=== PATIENT | male | born 1945 | race Hispanic/Latino ===

== ENCOUNTER 2018-06-14 20:04 | Inpatient (IN) | payer OTHER ==
[2018-06-14] MEDS ORDERED: ALBUTEROL 2.5 MG/3 ML NEB SOL ONE (21:20)
[2018-06-14 21:29] LABS: Absolute Lymphocytes (CBC) 1.8 K/uL (0.7-4.9); Absolute Monocytes 0.7 K/uL (0.1-1.3); Absolute Neutrophil 5.3 K/uL (1.8-8.0); Basophils % 0.9 % (0-1.3); Hematocrit 37.7 % (39.6-49.0); Lymphocytes % 21.7 % (15.3-44.8); MPV 11.3 fL (7.6-11.3); Monocytes % 8.8 % (3.3-12.3); RBC Red Blood Cell Count 3.96 M/uL (4.33-5.43)
--- NOTE | 2018-06-14 21:46 | RAD REPORT ---
EXAM DESCRIPTION: Jacinda Single View06/14/2018 9:10 pm CLINICAL HISTORY: Shortness of breath COMPARISON: January 2018 FINDINGS: Left base is mildly hazy. Right lung appears clear of acute infiltrate. The heart is norm al size IMPRESSION: Left base is mildly hazy suspicious for a mild pneumonia
[2018-06-14 21:51] LABS: ALT/SGPT 29 U/L (12-78); AST/SGOT 29 U/L (15-37); Albumin 3.5 g/dL (3.4-5.0); Alkaline Phosphatase 137 U/L (45-117); BUN Blood Urea Nitrogen 25 mg/dL (7-18); Bicarbonate 28 mmol/L (21-32); Bilirubin Direct 0.1 mg/dL (0-0.2); Bilirubin Total 0.5 mg/dL (0.2-1.0); Glucose Level 144 mg/dL (74-106); Magnesium 1.9 mg/dL (1.8-2.4); NT PRO-BNP 549 pg/mL (<125); Potassium 3.5 mmol/L (3.5-5.1); Protein, Total 7.6 g/dL (6.4-8.2); Sodium Level 145 mmol/L (136-145); Troponin (Emerg Dept Use Only) < 0.02 ng/mL (0.0-0.045)
[2018-06-14 22:00] LABS: Protime INR 1.03
[2018-06-14] MEDS ORDERED: CEFTRIAXONE/SWI 1gm 1 GM/10 ML SYR ONE (22:13)
--- NOTE | 2018-06-14 22:27 | EDPHYS ---
Physician Documentation [facility] Name: Link Granados Age: 73 yrs Sex: Male : 1945 Arrival Date: 06/14/2018 Time: 20:05 Bed 20 Private MD: ED Physician Jordan Murrell HPI: 06/14 21:00 This 73 yrs old Male presents to ER via Wheelchair with complaints of snw Shortness Of Breath. 21:00 The patient has shortness of breath at rest. Onset: The symptoms/episode began/occurred snw suddenly. Duration: The symptoms are continuous. The patient's shortness of breath is aggravated by exertion, light activity, supine position. Associated signs and symptoms: Pertinent positives: This patient does not have any pertinent positive signs or symptoms associated with shortness of breath. Pertinent negatives: chest pain. Severity of symptoms: At their worst the symptoms were moderate severe. The patient has experienced a previous episode. pt had stent placement at [facility] 05/22/18. Historical: - Allergies: 20:06 NKDA; la1 - PMHx: 20:06 Gout; High Cholesterol; Hypertension; la1 - Immunization history:: Adult Immunizations up to date. - Social history:: Smoking status: Patient/guardian denies using tobacco. - Ebola Screening: : No symptoms or risks identified at this time. ROS: 21:00 Constitutional: Negative for fever, chills, and weight loss, Eyes: Negative for injury, snw pain, redness, and discharge, ENT: Negative for injury, pain, and discharge, Neck: Negative for injury, pain, and swelling, Cardiovascular: Negative for chest pain, palpitations, and edema, Abdomen/GI: Negative for abdominal pain, nausea, vomiting, diarrhea, and constipation, Back: Negative for injury and pain, : Negative for injury, bleeding, discharge, and swelling, MS/Extremity: Negative for injury and deformity, Skin: Negative for injury, rash, and discoloration, Neuro: Negative for headache, weakness, numbness, tingling, and seizure. 21:00 Respiratory: Positive for shortness of breath, at rest. Exam: 20:58 Constitutional: This is a well developed, well nourished patient who is awake, alert, snw and in no acute distress. Head/Face: Normocephalic, atraumatic. Eyes: Pupils equal round and reactive to light, extra-ocular motions intact. Lids and lashes normal. Conjunctiva and sclera are non-icteric and not injected. Cornea within normal limits. Periorbital areas with no swelling, redness, or edema. ENT: Nares patent. No nasal discharge, no septal abnormalities noted. Tympanic membranes are normal and external auditory canals are clear. Oropharynx with no redness, swelling, or masses, exudates, or evidence of obstruction, uvula midline. Mucous membranes moist. Neck: Trachea midline, no thyromegaly or masses palpated, and no cervical lymphadenopathy. Supple, full range of motion without nuchal rigidity, or vertebral point tenderness. No Meningismus. Chest/axilla: Normal chest wall appearance and motion. Nontender with no deformity. No lesions are appreciated. Cardiovascular: Regular rate and rhythm with a normal S1 and S2. No gallops, murmurs, or rubs. Normal PMI, no JVD. No pulse deficits. 20:58 Abdomen/GI: Soft, non-tender, with normal bowel sounds. No distension or tympany. No guarding or rebound. No evidence of tenderness throughout. Back: No spinal tenderness. No costovertebral tenderness. Full range of motion. 20:58 Neuro: Awake and alert, GCS 15, oriented to person, place, time, and situation. Cranial nerves II-XII grossly intact. Motor strength 5/5 in all extremities. Sensory grossly intact. Cerebellar exam normal. Normal gait. Psych: Awake, alert, with orientation to person, place and time. Behavior, mood, and affect are within normal limits. 20:58 Respiratory: the patient does not display signs of respiratory distress, Respirations: shallow respirations, tachypnea, Breath sounds: decreased breath sounds, that are moderate, that are severe, are located in both bases, wheezing: expiratory 20:58 Skin: Appearance: normal except for affected area, lower extremities with significant edema, some discoloration. Pt with orthopnea. Vital Signs: 20:06 BP 185 / 71; Pulse 90; Resp 22; Temp 98.6; Pulse Ox 88% on R/A; Weight 92.99 kg; Height la1 5 ft. 2 in. (157.48 cm); 20:30 BP 138 / 51; Pulse 81; Resp 22; Pulse Ox 99% on 2 lpm NC; rr5 21:00 BP 121 / 49; Pulse 71; Resp 23; Pulse Ox 99% on 2 lpm NC; rr5 21:30 BP 111 / 41; Pulse 74; Resp 20; Pulse Ox 98% on 2 lpm NC; rr5 22:00 BP 132 / 65; Pulse 63; Resp 20; Pulse Ox 99% on 2 lpm NC; rr5 22:30 BP 142 / 56; Pulse 72; Resp 20; Pulse Ox 99% on 2 lpm NC; rr5 06/15 00:00 BP 144 / 55; Pulse 60; Resp 19; Pulse Ox 99% on 2 lpm NC; rr5 01:00 BP 126 / 55; Pulse 60; Resp 17; Pulse Ox 99% on 2 lpm NC; rr5 01:53 BP 131 / 57; Pulse 59; Resp 16; Pulse Ox 99% on 2 lpm NC; rr5 02:27 BP 117 / 64; Pulse 60; Resp 17; Temp 98.1; Pulse Ox 99% on 2 lpm NC; rr5 06/14 20:06 Body Mass Index 37.49 (92.99 kg, 157.48 cm) la1 MDM: 06/14 20:57 Patient medically screened. snw 22:21 Data reviewed: vital signs, nurses notes. Data interpreted: Pulse oximetry: on room air snw is 87 %. Interpretation: hypoxia. Plan: will initiate a nebulizer treatment. Counseling: I had a detailed discussion with the patient and/or guardian regarding: the historical points, exam findings, and any diagnostic results supporting the discharge/admit diagnosis, the presence of at least one elevated blood pressure reading (>120/80) during this emergency department visit, lab results, radiology results, the need for further work-up and treatment in the hospital. Physician consultation: Lawrence Rebolledo MD was called at 22:23, was contacted at 22:23, regarding admission, to the telemetry unit. Dr. Bland, would like consultation with Dr. Dr. Bland. 06/14 20:24 Order name: Urine Dipstick--Ancillary (enter results); Complete Time: 23:01 ar5 06/14 20:46 Order name: Basic Metabolic Panel; Complete Time: 21:53 snw 06/14 20:46 Order name: CBC with Diff; Complete Time: 21:44 snw 06/14 20:46 Order name: LFT's; Complete Time: 21:53 w 06/14 20:46 Order name: Magnesium; Complete Time: 21:53 w 06/14 20:46 Order name: NT PRO-BNP; Complete Time: 21:53 w 06/14 20:46 Order name: PT-INR; Complete Time: 22:07 w 06/14 20:46 Order name: Troponin (emerg Dept Use Only); Complete Time: 21:53 w 06/14 20:46 Order name: XRAY Chest (1 view); Complete Time: 21:48 06/14 20:46 Order name: EKG; Complete Time: 20:47 w 06/14 20:46 Order name: Cardiac monitoring; Complete Time: 20:59 06/14 20:46 Order name: EKG - Nurse/Tech; Complete Time: 20:58 06/14 20:46 Order name: IV Saline Lock; Complete Time: 21:06 w 06/14 20:46 Order name: Labs collected and sent; Complete Time: 21:06 06/14 20:46 Order name: O2 Per Protocol; Complete Time: 21:06 06/14 20:46 Order name: O2 Sat Monitoring; Complete Time: 21:06 snw Administered Medications: 21:15 Drug: Albuterol 2.5 mg Route: Inhalation; rr5 06/15 00:01 Follow up: Response: No adverse reaction; Marked relief of symptoms rr5 06/14 22:00 Drug: Rocephin 1 grams Route: IV; Rate: calculated rate; Site: right forearm; rr5 06/15 00:01 Follow up: Response: No adverse reaction; IV Status: Completed infusion rr5 Disposition: 07:03 Co-signature as Attending Physician, Jordan Murrell MD I agree with the assessment and vito plan of care. Disposition: 06/14/18 22:25 Hospitalization ordered by Lawrence Rebolledo for Observation. Preliminary diagnosis are Asthma, Pneumonia, unspecified organism, Edema, not elsewhere classified. - Bed requested for Telemetry/MedSurg (observation). - Status is Observation. rr5 - Condition is Stable. - Problem is an acute exacerbation. - Symptoms have worsened. UTI on Admission? No Signatures: Dispatcher [employer] EDMS Hal, CINTIA Chase RN, Corey, MD MD cha Therrien, Shelly, PROFESSOR OF RADIOLOGY-C PROFESSOR OF RADIOLOGY-Csnw Nicola Berrios RN RN la1 Kendrick Bridges RN RN rr5 Corrections: (The following items were deleted from the chart) :06/14 22:25 Hospitalization Ordered by Lawrence Rebolledo MD for Observation. Preliminary kl diagnosis is Asthma; Pneumonia, unspecified organism; Edema, not elsewhere classified. Bed requested for Telemetry/MedSurg (observation). Status is Observation. Condition is Stable. Problem is an acute exacerbation. Symptoms have worsened. UTI on Admission? No. snw 06/15 03:02 01:06/14/2018 22:25 Hospitalization Ordered by Lawrence Rebolledo MD for Observation. rr5 Preliminary diagnosis is Asthma; Pneumonia, unspecified organism; Edema, not elsewhere classified. Bed requested for Telemetry/MedSurg (observation). Status is Observation. Condition is Stable. Problem is an acute exacerbation. Symptoms have worsened. UTI on Admission? No. kl
--- NOTE | 2018-06-14 22:27 | ER ---
Nurse's Notes [facility] Name: Link Granados Age: 73 yrs Sex: Male : 1945 Arrival Date: 06/14/2018 Time: 20:05 Bed 20 Private MD: Diagnosis: Asthma;Pneumonia, unspecified organism;Edema, not elsewhere classified Presentation: 06/14 20:05 Presenting complaint: Patient states: I started to get suddenly SOB on my way home an I la1 had some stents placed earlier this month. Transition of care: patient was not received from another setting of care. Onset of symptoms was June 14, 2018. Risk Assessment: Do you want to hurt yourself or someone else? Patient reports no desire to harm self or others. Initial Sepsis Screen: Does the patient meet any 2 criteria? No. Patient's initial sepsis screen is negative. Does the patient have a suspected source of infection? No. Patient's initial sepsis screen is negative. Care prior to arrival: None. 20:05 Method Of Arrival: Wheelchair la1 20:05 Acuity: JOHAN 2 la1 Triage Assessment: 20:10 Respiratory: Onset: The symptoms/episode began/occurred suddenly, the patient has rr5 moderate shortness of breath. 20:10 General: Appears uncomfortable, Behavior is calm, cooperative, appropriate for age. rr5 Historical: - Allergies: 20:06 NKDA; la1 - PMHx: 20:06 Gout; High Cholesterol; Hypertension; la1 - Immunization history:: Adult Immunizations up to date. - Social history:: Smoking status: Patient/guardian denies using tobacco. - Ebola Screening: : No symptoms or risks identified at this time. Screenin:10 Abuse screen: Denies threats or abuse. Denies injuries from another. Nutritional rr5 screening: No deficits noted. Tuberculosis screening: No symptoms or risk factors identified. Fall Risk IV access (20 points). Gait- Normal/Bed Rest/Wheelchair (0 pts) Total Adamson Fall Scale indicates No Risk (0-24 pts). Assessment: 20:05 General: Appears in no apparent distress. uncomfortable, Behavior is calm, cooperative, rr5 appropriate for age. Pain: Denies pain. Neuro: Level of Consciousness is awake, alert, obeys commands, Oriented to person, place, time, situation, Appropriate for age. Cardiovascular: Capillary refill < 3 seconds Patient's skin is warm and dry. Rhythm is regular. Respiratory: Reports shortness of breath at rest on exertion since sudden Airway is patent Respiratory effort is even, with nasal flaring, pursed lip, Respiratory pattern is regular. 20:05 GI: No signs and/or symptoms were reported involving the gastrointestinal system. : rr5 No signs and/or symptoms were reported regarding the genitourinary system. EENT: No signs and/or symptoms were reported regarding the EENT system. Derm: Skin is intact, Skin temperature is warm. Musculoskeletal: Capillary refill < 3 seconds, Range of motion: intact in all extremities, bipedal edema noted. 20:05 Respiratory: Breath sounds are diminished Breath sounds with wheezes. rr5 20:15 Reassessment: Patient appears in no apparent distress at this time. No changes from rr5 previously documented assessment. having SOB, having hard time to breath. 21:15 Reassessment: Patient appears in no apparent distress at this time. awaiting for rr5 laboratory reports Patient states feeling better. Patient states symptoms have improved. 22:30 Reassessment: Patient appears in no apparent distress at this time. Patient is alert, rr5 oriented x 3, equal unlabored respirations, skin warm/dry/pink. reassessment done by ED provider, explained to patient he is for admission. Patient states feeling better. Patient states symptoms have improved. 23:59 Reassessment: Patient appears in no apparent distress at this time. Patient is alert, rr5 oriented x 3, equal unlabored respirations, skin warm/dry/pink. no complaints made awaiting for admitting orders. Patient states feeling better. Patient states symptoms have improved. 06/15 01:00 Reassessment: Patient appears in no apparent distress at this time. Patient is alert, rr5 oriented x 3, equal unlabored respirations, skin warm/dry/pink. patient prefers to be on sitting position. without complaints made. 01:50 Reassessment: Patient appears in no apparent distress at this time. Patient is alert, rr5 oriented x 3, equal unlabored respirations, skin warm/dry/pink. no complaints made. vitally stable. Patient states feeling better. Patient states symptoms have improved. Vital Signs: 06/14 20:06 BP 185 / 71; Pulse 90; Resp 22; Temp 98.6; Pulse Ox 88% on R/A; Weight 92.99 kg; Height la1 5 ft. 2 in. (157.48 cm); 20:30 BP 138 / 51; Pulse 81; Resp 22; Pulse Ox 99% on 2 lpm NC; rr5 21:00 BP 121 / 49; Pulse 71; Resp 23; Pulse Ox 99% on 2 lpm NC; rr5 21:30 BP 111 / 41; Pulse 74; Resp 20; Pulse Ox 98% on 2 lpm NC; rr5 22:00 BP 132 / 65; Pulse 63; Resp 20; Pulse Ox 99% on 2 lpm NC; rr5 22:30 BP 142 / 56; Pulse 72; Resp 20; Pulse Ox 99% on 2 lpm NC; rr5 06/15 00:00 BP 144 / 55; Pulse 60; Resp 19; Pulse Ox 99% on 2 lpm NC; rr5 01:00 BP 126 / 55; Pulse 60; Resp 17; Pulse Ox 99% on 2 lpm NC; rr5 01:53 BP 131 / 57; Pulse 59; Resp 16; Pulse Ox 99% on 2 lpm NC; rr5 02:27 BP 117 / 64; Pulse 60; Resp 17; Temp 98.1; Pulse Ox 99% on 2 lpm NC; rr5 06/14 20:06 Body Mass Index 37.49 (92.99 kg, 157.48 cm) la1 ED Course: 06/14 20:05 Patient arrived in ED. la1 20:06 Triage completed. la1 20:06 Arm band placed on right wrist. la1 20:10 Patient has correct armband on for positive identification. Placed in gown. Call light rr5 in reach. 20:10 equipment monitor phototypesetting on. Pulse ox on. NIBP on. rr5 20:44 Kendrick Bridges RN is Primary Nurse. rr5 20:45 Marbella Madsen FNP-C is PHCP. snw 20:45 Jordan Murrell MD is Attending Physician. snw 21:00 Inserted saline lock: 20 gauge in right forearm, using aseptic technique. Blood rr5 collected. 21:11 XRAY Chest (1 view) In Process Unspecified. EDMS 22:24 Lawrence Rebolledo MD is Hospitalizing Provider. snw 06/15 02:04 No provider procedures requiring assistance completed. Patient admitted, IV remains in rr5 place. intact, No redness/swelling at site. Administered Medications: 06/14 21:15 Drug: Albuterol 2.5 mg Route: Inhalation; rr5 06/15 00:01 Follow up: Response: No adverse reaction; Marked relief of symptoms rr5 06/14 22:00 Drug: Rocephin 1 grams Route: IV; Rate: calculated rate; Site: right forearm; rr5 06/15 00:01 Follow up: Response: No adverse reaction; IV Status: Completed infusion rr5 Outcome: 06/14 22:25 Decision to Hospitalize by Provider. snw 06/15 02:20 Admitted to Med/surg accompanied by nurse, via wheelchair, with oxygen, with chart, rr5 Report called to deb Condition: stable Instructed on the need for admit. 03:02 Patient left the ED. rr5 Signatures: Dispatcher [employer] EDMS Marbella Madsen, [facility] PUBLIC HEALTH SANITARIAN-CsnNicola Mike RN RN la1 Kendrick Bridges RN RN rr5 Corrections: (The following items were deleted from the chart) 02:32 06/14 20:05 Musculoskeletal: Capillary refill < 3 seconds, Range of motion: intact in rr5 all extremities, rr5
[2018-06-14 22:56] LABS: Urine Blood TRACE (NEG); Urine Glucose NEGATIVE (NEG); Urine Protein TRACE (NEG)
[2018-06-15] MEDS ORDERED: FUROSEMIDE 20 MG TABLET PO ONE (03:03)
[2018-06-15] MEDS ORDERED: CARVEDILOL 25 MG TAB PO ONE (03:11)
[2018-06-15] MEDS: ALBUTEROL 2.5 MG/3 ML NEB SOL NEB SCH ×3 (03:45→11:36)
[2018-06-15 04:23] VITALS: BMI 37.5
[2018-06-15] MEDS: IPRATROPIUM BROM 0.5MG/2.5ML NEB PRN (05:31)
[2018-06-15 06:51] LABS: Absolute Lymphocytes (CBC) 1.9 K/uL (0.7-4.9); Absolute Monocytes 0.8 K/uL (0.1-1.3); Basophils % 0.8 % (0-1.3); Eosinophils % 2.2 % (0-4.4); Lymphocytes % 24.1 % (15.3-44.8); MPV 11.3 fL (7.6-11.3); RBC Red Blood Cell Count 3.69 M/uL (4.33-5.43)
[2018-06-15 07:19] LABS: BUN Blood Urea Nitrogen 24 mg/dL (7-18); Bicarbonate 28 mmol/L (21-32); Glucose Level 113 mg/dL (74-106); NT PRO-BNP 867 pg/mL (<125); Potassium 3.4 mmol/L (3.5-5.1); Sodium Level 145 mmol/L (136-145); Troponin I 0.03 ng/mL (0.0-0.045)
--- NOTE | 2018-06-15 07:58 | EKG ---
Test Date: 2018-06-14 Test Time: 20:19:50 Boring Machine Set Up Operator: АНДРЕЙ MEASUREMENT RESULTS: Intervals: Rate: 84 ND: 246 QRSD: 98 QT: 350 QTc: 413 [place]: P: 89 ND: 246 QRS: 11 T: 150 INTERPRETIVE STATEMENTS: Sinus rhythm with 1st degree AV block ST & T wave abnormality, consider inferolateral ischemia Abnormal ECG Compared to ECG 04/14/2013 19:01:27 First degree AV block now present ST (T wave) deviation now present Possible ischemia now present Electronically Signed On 06-15-18 07:53:12 ASSOCIATE ACCOUNTANT by Pablo Duncan
[2018-06-15] MEDS: ASPIRIN EC 81 MG TAB PO SCH (08:12)
[2018-06-15] MEDS: ACETAMINOPHEN 500 MG TAB PO PRN (08:12)
[2018-06-15] MEDS: SPIRONOLACTONE 25 MG TABLET PO SCH ×2 (09:00→12:38)
[2018-06-15] MEDS: TICAGRELOR 90 MG TABLET PO SCH ×3 (09:00→21:18)
[2018-06-15] MEDS ORDERED: CEFTRIAXONE/SWI 1gm 1 GM/10 ML SYR IV SCH (09:00)
[2018-06-15] MEDS ORDERED: CEFTRIAXONE 1 GM/NS 50 ML 1 GM/50 ML BAG IV SCH (09:00)
--- NOTE | 2018-06-15 11:54 | P.CNS ---
Date of Consult: 06/15/18 Chief Complaint: Shortness of breath History of Present Illness: Patient is 73 years of age with a recent history of CT coronary artery disease stent placement developed acute onset of shortness of breath he has been having progressive lower extremity edema prior lung function tests have shown restrictive disease he also has symptoms of sleep apnea which includes excessive daytime somnolence loud snoring this was noticed by physicians when they were trying to place a stent and he would quit breathing apparently according to his son he had to be intubated to place stents no prior history of obstructive airways disease Allergies No Known Drug Allergies Allergy (Verified 06/15/18 04:03) Unknown - Past Medical/Surgical History Diabetic: No -: dyslipidemia -: hypovolemia -: chronic bronchitis -: dyspnea -: gout -: hypertensive d/o -: metabolic syndrome x -: CT -: sleep apnea -: left knee sx- tkr -: heart stent - Social History Smoking Status: Current every day smoker Alcohol use: No CD- Drugs: No Caffeine use: No Place of Residence: Home Review of Systems General: Weakness Respiratory: Shortness of Breath Cardiovascular: Edema Physical Examination Temp Pulse Resp BP Pulse Ox 97.6 F 64 20 192/79 H 98 06/15/18 08:00 06/15/18 08:00 06/15/18 08:00 06/15/18 08:00 06/15/18 08:00 General: Alert, In no apparent distress, Oriented x3 HEENT: Atraumatic Neck: Supple Respiratory: Clear to auscultation bilaterally, Diminished Cardiovascular: Normal S1 S2, Edema (Significant 3+ lower extremity edema) Laboratory Data (last 24 hrs) 06/14/18 21:00: PT 12.1, INR 1.03 06/14/18 21:00: WBC 8.1, Hgb 12.4 L, Hct 37.7 L, Plt Count 135 L 06/14/18 21:00: Sodium 145, Potassium 3.5, BUN 25 H, Creatinine 0.77, Glucose 144 H, Magnesium 1.9, Total Bilirubin 0.5, AST 29, ALT 29, Alkaline Phosphatase 137 H - Problems (1) Shortness of breath Current Visit: Yes Status: Acute Plan: Patient is 73 years of age admitted with acute onset of shortness of breath history of significant coronary artery disease recent stent placement lower extremity edema of order an echocardiogram with Doppler aggressive diuresis CT pulmonary angiogram chest x-ray shows diminished lung volumes (2) Sleep apnea Current Visit: Yes Status: Acute Plan: Patient high risk for sleep apnea he an outpatient sleep study Qualifiers: Sleep apnea type: unspecified type Qualified Code(s): G47.30 - Sleep apnea , unspecified
[2018-06-15] MEDS ORDERED: ALBUTEROL 2.5 MG/3 ML NEB SOL NEB SCH (12:00)
[2018-06-15] MEDS: FUROSEMIDE 40 MG/4 ML VIAL IV SCH (12:30)
--- NOTE | 2018-06-15 14:18 | RAD REPORT ---
EXAM DESCRIPTION: CT - Chest For Pe Angio - 06/15/2018 2:05 pm CLINICAL HISTORY: Chest pain, shortness of breath COMPARISON: Chest film June 14, CT chest July 2015 TECHNIQUE: Dynamically enhanced 3 mm thick images of the chest were obtained during administration o f approximately 150mL Isovue 370 IV contrast. Coronal and oblique MIP reconstruction images were gene rated and reviewed. Exam utilizes a protocol to evaluate the pulmonary arterial tree. All CT scans are performed using dose optimization technique as appropriate and may include automated exposure control or mA/KV adjustment according to patient size. FINDINGS: No pulmonary emboli are identified. The aorta as imaged shows no acute or suspicious finding. No pericardial thickening or effusion. No mass or consolidation. Right hemidiaphragm elevation noted. Interstitial markings overall are prom inent, accentuated by respiratory motion degradation. Patient does have slight increase in interstiti al opacification in the posterior left base with rare airspace opacification present. Minimal medial right base opacification present as well. No pleural effusion or pleural thickening. No mediastinal or hilar suspicious masses. No chest wall masses or abnormal axillary lymphadenopathy. IMPRESSION: No pulmonary emboli identified. Minimal bilateral lung base opacification from a minimal infiltrate or atelectasis.
--- NOTE | 2018-06-15 15:29 | RAD REPORT ---
EXAM DESCRIPTION: US - Extrem Venous W Compress Darrian - 06/15/2018 2:59 pm CLINICAL HISTORY: Bilateral leg pain and swelling COMPARISON: None. TECHNIQUE: Real-time sonographic evaluation of the bilateral lower extremity common femoral, superfi cial femoral, popliteal and posterior tibial veins was performed. FINDINGS: Normal compressibility, flow augmentation, phasic flow and spontaneous flow are identified in the left and right lower extremity common femoral, superficial femoral, popliteal and posterior t ibial veins. No intraluminal filling defects seen. IMPRESSION: No DVT in either lower extremity.
[2018-06-15] MEDS ORDERED: POTASSIUM CL SA 10 MEQ TAB PO SCH (21:00)
[2018-06-15] MEDS: ATORVASTATIN 40 MG TAB PO SCH (21:19)
--- NOTE | 2018-06-16 04:25 | HP ---
Date of Admission: 06/14/2018 Chief Complaint: Left-sided pneumonia. History Of Present Illness: A 73-year-old male who was brought to the emergency room because of shor tness of breath and cough. The patient had evaluation done. He was found to have opacification of t he left base, which was interpreted as pneumonia. The patient is admitted. The patient also was fou nd to have evidence of bilateral swelling. Past Medical History: The patient recently underwent coronary angiography and angioplasty. The estella ent has other medical problems that include hypertension, asthma, hyperlipidemia, and gout. Family History: Positive for gout, hypertension, and hyperlipidemia. Personal History: Nonsmoker. Allergies: NONE. Review of Systems: No history of fever, chills, or rigors. Physical Examination: General: Revealed a 73-year-old male, obese, fully alert and oriented. HEENT: Negative. Neck: Supple. JVD negative. Chest: Bilateral scattered wheezes. Heart: Regular. Abdomen: Pendulous, nontender. Extremities: Bilateral leg edema noted. Laboratory Data: 1.Chest x-ray suspicious for left basal pneumonia. 2.CT scan of the chest: Evidence of opacification, interpreted as atelectasis versus pneumonia. 3.White count is normal. Chem profile; BUN 25. BNP 549. Troponin normal. Assessment: 1.Possible left basal pneumonia. 2.Known coronary artery disease with recent angioplasty. 3.Asthma. 4.Hypertension. 5.Hyperlipidemia. Plan: The patient was seen by Dr. Bland. As suggested by Dr. Bland, the patient will be monit ored for possible pneumonia and possible evidence of congestive heart failure causing his symptoms. CLARY/KYLIE Voice ID: [id number]
[2018-06-16 06:28] LABS: BUN Blood Urea Nitrogen 22 mg/dL (7-18); Bicarbonate 32 mmol/L (21-32); Glucose Level 104 mg/dL (74-106); Potassium 3.5 mmol/L (3.5-5.1); Sodium Level 142 mmol/L (136-145)
--- NOTE | 2018-06-16 07:52 | ECHO ---
HEIGHT: 5 ft 2 in WEIGHT: 205 lb 0 oz DATE OF STUDY: 06/15/[address]: Luis Bland MD 2-DIMENSIONAL: YES M.MODE: YES DOPPLER: YES COLOR FLOW: YES TDS: YES PORTABLE: DEFINITY: BUBBLE STUDY: DIAGNOSIS: CONGESTIVE HEART FAILURE CARDIAC HISTORY: CATHERIZATION: YES SURGERY: NO PROSTHETIC VALVE: NO PACEMAKER: NO MEASUREMENTS (cm) DIASTOLIC (NORMALS) SYSTOLIC (NORMALS) IVSd 1.4 (0.6-1.2) LA Diam 4.7 (1.9-4.0) LVEF 58% LVIDd 5.1 (3.5-5.7) LVIDs 3.5 (2.0-3.5) %FS 31% LVPWd 1.3 (0.6-1.2) Ao Diam 3.1 (2.0-3.7) 2 DIMENSIONAL ASSESSMENT: RIGHT ATRIUM: NORMAL LEFT ATRIUM: DILATED RIGHT VENTRICLE: NORMAL LEFT VENTRICLE: LEFT VENTRICULAR HYPERTROPHY TRICUSPID VALVE: NORMAL MITRAL VALVE: MITRAL ANNULAR CALCIFICATION PULMONIC VALVE: NORMAL AORTIC VALVE: SCLEROSIS PERICARDIAL EFFUSION: NONE AORTIC ROOT: NORMAL LEFT VENTRICULAR WALL MOTION: NORMAL DOPPLER/COLOR FLOW: MILD TRICUSPID AND MITRAL REGURGITATION. COMMENTS: MILD MITRAL AND TRICUSPID REGURGITATION. LEFT VENTRICULAR HYPERTROPHY. DECREASED LEFT VENTRICULAR COMPLIANCE. NORMAL EJECTION FRACTION. MITRAL ANNULAR CALCIFICATION. AORTIC SCLEROSIS. TECHNOLOGIST: AYAD MOYER
[2018-06-16] MEDS: FUROSEMIDE 40 MG/4 ML VIAL IV SCH (09:49)
[2018-06-16] MEDS: SPIRONOLACTONE 25 MG TABLET PO SCH (09:49)
[2018-06-16] MEDS: ASPIRIN EC 81 MG TAB PO SCH (09:51)
[2018-06-16] MEDS: TICAGRELOR 90 MG TABLET PO SCH ×2 (09:52→20:30)
--- NOTE | 2018-06-16 12:04 | P.PN ---
Subjective Date of Service: 06/16/18 Chief Complaint: Shortness of breath Subjective: Improving (Patient's legs are improving is still complains of shortness of breath no evidence of thromboembolism or DVT) Review of Systems General: Weakness Respiratory: Shortness of Breath Cardiovascular: Edema Physical Examination - Vital Signs Temperature: 98.2 F Blood Pressure: 139/65 Pulse: 60 Respirations: 18 Pulse Ox (%): 98 - Physical Exam General: Alert, In no apparent distress, Oriented x3 Neck: Supple Respiratory: Clear to auscultation bilaterally Cardiovascular: Regular rate/rhythm, Edema (3+ edema) Assessment & Plan - Problems (Diagnosis) (1) Sleep apnea Current Visit: Yes Status: Acute Plan: Patient high risk for sleep apnea he an outpatient sleep study Qualifiers: Sleep apnea type: unspecified type Qualified Code(s): G47.30 - Sleep apnea , unspecified (2) Diastolic dysfunction Current Visit: Yes Status: Acute Plan: Patient most likely has diastolic heart failure continue with Lasix echocardiogram impaired left ventricular relaxation there is no evidence of DVT of thromboembolism labs reviewed vital signs are satisfactory room-air sat is 98 % patient is on Lasix 40 mg a day at home and was spironolactone 12.5 which was increased to 50 mg possible discharge a.m. he will need outpatient sleep study
[2018-06-16] MEDS: ACETAMINOPHEN 500 MG TAB PO PRN (16:26)
[2018-06-16] MEDS: IPRATROPIUM BROM 0.5MG/2.5ML NEB PRN ×2 (16:29→22:40)
[2018-06-16] MEDS: ATORVASTATIN 40 MG TAB PO SCH (20:31)
--- NOTE | 2018-06-17 01:35 | PN ---
The patient's echocardiogram shows evidence of diastolic heart failure. The patient has less swellin g of the feet and his breathing is better. In view of response, he will be continued on the same malaika e of management. He is afebrile. CLARY/KYLIE Voice ID: [id number] Report ID: [id number]
--- NOTE | 2018-06-17 08:28 | P.PN ---
Subjective Date of Service: 06/17/18 Chief Complaint: Shortness of breath Subjective: Improving (Patient is doing better still short of breath lower extremity edema has decreased) Review of Systems Unremarkable Physical Examination - Vital Signs Temperature: 97.8 F Blood Pressure: 146/63 Pulse: 57 Respirations: 18 Pulse Ox (%): 95 - Physical Exam General: Alert, Oriented x3 Respiratory: Clear to auscultation bilaterally, Diminished Cardiovascular: Edema (Edema 2+) Assessment & Plan - Problems (Diagnosis) (1) Sleep apnea Current Visit: Yes Status: Acute Plan: Patient high risk for sleep apnea he an outpatient sleep study Qualifiers: Sleep apnea type: unspecified type Qualified Code(s): G47.30 - Sleep apnea , unspecified (2) Diastolic dysfunction Current Visit: Yes Status: Acute Plan: Patient is doing better can be discharged home on 40 mg of Lasix in addition to spironolactone 50 mg
[2018-06-17] MEDS: TICAGRELOR 90 MG TABLET PO SCH ×2 (09:41→21:49)
[2018-06-17] MEDS: SPIRONOLACTONE 25 MG TABLET PO SCH (09:42)
[2018-06-17] MEDS: ASPIRIN EC 81 MG TAB PO SCH (09:43)
[2018-06-17] MEDS: FUROSEMIDE 40 MG/4 ML VIAL IV SCH (09:43)
[2018-06-17] MEDS: ACETAMINOPHEN 500 MG TAB PO PRN (13:25)
[2018-06-17] MEDS ORDERED: HYDRALAZINE HCL 20 MG/ML VIAL IV PRN (14:51)
[2018-06-17] MEDS: IPRATROPIUM BROM 0.5MG/2.5ML NEB PRN ×2 (17:01→23:26)
[2018-06-17] MEDS: ATORVASTATIN 40 MG TAB PO SCH (21:20)
--- NOTE | 2018-06-18 02:20 | PN ---
The patient has less swelling of the legs. He still has mild shortness of breath at rest with mild w heezing. He is afebrile. His blood pressure has started going up. He is restarted on Benicar. How ever, he is also on spironolactone. His chemistry profile will be checked to detect any possible hyp erkalemia. CLARY/KYILE Voice ID: [id number] Report ID: [id number]
[2018-06-18] MEDS ORDERED: VALSARTAN 80 MG TAB PO SCH (09:00)
[2018-06-18] MEDS ORDERED: HOME MED 1 EA UNK (Olmesartan Medoxomil [Olmesartan Medoxomil] 40 MG) PO SCH (09:00)
[2018-06-18] MEDS: FUROSEMIDE 40 MG/4 ML VIAL IV SCH (09:32)
[2018-06-18] MEDS: SPIRONOLACTONE 25 MG TABLET PO SCH (09:33)
[2018-06-18] MEDS: ASPIRIN EC 81 MG TAB PO SCH (09:34)
[2018-06-18 10:18] VITALS: O2SAT 96
[2018-06-18] MEDS: TICAGRELOR 90 MG TABLET PO SCH (10:51)
[2018-06-18] MEDS: IPRATROPIUM BROM 0.5MG/2.5ML NEB PRN (11:04)
[2018-06-18 15:11] VITALS: BP 124/60; TEMP 98.2
== END 2018-06-18 13:29 | disposition home or self-care (01) | DRG 291 ==
LOC: ER 20:04 → ERHOLD 22:26 → 2ND 06-15 02:23 → OBSVTOIN 06-16 20:08
PROVIDERS: ADMIT Internal Medicine; ATTEND Internal Medicine
DX: I50.31 Acute diastolic (congestive) heart failure (principal); J18.9 Pneumonia, unspecified organism; G47.30 Sleep apnea, unspecified; E78.5 Hyperlipidemia, unspecified; I25.2 Old myocardial infarction; I25.10 Atherosclerotic heart disease of native coronary artery without angina pectoris; Z95.5 Presence of coronary angioplasty implant and graft; F17.210 Nicotine dependence, cigarettes, uncomplicated; J45.909 Unspecified asthma, uncomplicated; M10.9 Gout, unspecified; E66.9 Obesity, unspecified; I11.0 Hypertensive heart disease with heart failure; Z68.37 Body mass index [BMI] 37.0-37.9, adult
CPT/HCPCS: 36415; 71045; 71275; 80048; 80076; 81003; 82962; 83735; 83880; 84443; 84484; 85025; 85610; 93005; 93306; 93970; 94640; 94760; 96365; 96366; 99285; G0378; J0360; J0696; J1940; Q9967

== ENCOUNTER 2019-05-19 18:53 | Emergency (ER) | payer SELFPAY ==
[2019-05-19 20:11] LABS: Absolute Lymphocytes (CBC) 1.8 K/uL (0.7-4.9); Basophils % 0.9 % (0-1.3); Hematocrit 38.8 % (39.6-49.0); MPV 10.8 fL (7.6-11.3); RBC Red Blood Cell Count 4.02 M/uL (4.33-5.43)
[2019-05-19 20:20] LABS: Protime INR 1.02
[2019-05-19 20:23] LABS: BUN Blood Urea Nitrogen 16 mg/dL (7-18); Bicarbonate 28 mmol/L (21-32); Glucose Level 108 mg/dL (74-106); Potassium 3.7 mmol/L (3.5-5.1); Sodium Level 141 mmol/L (136-145)
--- NOTE | 2019-05-19 20:31 | ER ---
Nurse's Notes [facility] Name: Link Granados Age: 74 yrs Sex: Male : 1945 Arrival Date: 05/19/2019 Time: 18:58 Bed 28 Private MD: Lawrence Rebolledo R Diagnosis: Varicose veins of right lower extremity with ulcer-small ulceration with hematoma without bleeding Presentation: 05/19 19:03 Presenting complaint: Patient states: He noticed discolored spot on his right leg aj1 today, after he took a shower, he was drying himself off and one of the spots popped open. He cleaned the area up, but then noticed another spot appear on his leg so he came to the emergency room for evaluation. Transition of care: patient was not received from another setting of care. Onset of symptoms was May 19, 2019. Risk Assessment: Do you want to hurt yourself or someone else? Patient reports no desire to harm self or others. Risk Assessment: Do you want to hurt yourself or someone else?. Initial Sepsis Screen: Does the patient meet any 2 criteria? No. Patient's initial sepsis screen is negative. Does the patient have a suspected source of infection? Yes: Skin breakdown/wound. Care prior to arrival: None. 19:03 Method Of Arrival: Wheelchair aj1 19:03 Acuity: JOHAN 3 aj1 Triage Assessment: 19:09 General: Appears in no apparent distress. comfortable, Behavior is calm, cooperative, aj1 appropriate for age. Pain: Denies pain. Neuro: Level of Consciousness is awake, alert, obeys commands. Cardiovascular: Patient's skin is warm and dry. Respiratory: Airway is patent Respiratory effort is even, unlabored, Respiratory pattern is regular, symmetrical. Historical: - Allergies: 19:09 NKDA; aj1 - Home Meds: 19:09 BRILINTA 90 mg oral tab 1 tab 2 times per day [Active]; atorvastatin 80 mg oral tab 1 aj1 tab once daily [Active]; colchicine 0.6 mg Oral cap 1 cap 2 times per day [Active]; allopurinol 300 mg Oral tab 1 tab once daily [Active]; carvedilol 25 mg oral tab 1 tab 2 times per day [Active]; furosemide 20 mg Oral tab 1 tab 2 times per day [Active]; aspirin 81 mg Oral chew 1 tab once daily [Active]; spironolactone 25 mg Oral tab 1 tab 2 times per day [Active]; cetirizine 10 mg oral tab 1 tab once daily [Active]; - PMHx: 19:09 Gout; High Cholesterol; Hypertension; Myocardial infarction; cardiac stents x4; COPD; aj1 - Immunization history:: Flu vaccine is not up to date. - Social history:: Smoking status: Patient/guardian denies using tobacco. - Ebola Screening: : Patient denies travel to an Ebola-affected area in the 21 days before illness onset. Screenin:10 Abuse screen: Denies threats or abuse. Denies injuries from another. Nutritional rv screening: No deficits noted. Tuberculosis screening: No symptoms or risk factors identified. Fall Risk None identified. Assessment: 21:08 General: Appears in no apparent distress. comfortable, Behavior is calm, cooperative. rv Pain: Complains of pain in medial aspect of right calf. Neuro: Level of Consciousness is awake, alert, obeys commands, Oriented to person, place, time, situation. Respiratory: Airway is patent. Derm: Wound noted medial aspect of right calf. Vital Signs: 19:09 BP 141 / 75; Pulse 67; Resp 18; Temp 98.4; Pulse Ox 97% on R/A; Weight 88.45 kg (R); aj1 Height 5 ft. 4 in. (162.56 cm) (R); Pain 0/10; 19:09 Body Mass Index 33.47 (88.45 kg, 162.56 cm) aj1 ED Course: 18:58 Patient arrived in ED. es 18:58 Lawrence Rebolledo MD is Private Physician. es 19:05 Triage completed. aj1 19:09 Arm band placed on Patient placed in waiting room, Patient notified of wait time. aj1 19:29 Marbella [facility]ads[facility]-C [facility] snw 19:29 Lucho Rene MD is Attending Physician. snw 19:45 Sadi Cervantes, CINTIA is Primary Nurse. rv 19:54 Initial lab(s) drawn, by me, sent to lab. First set of blood cultures drawn by me. lt1 19:56 Missed attempt(s): 22 gauge in left wrist. lt1 19:56 Inserted saline lock: 22 gauge in left antecubital area, using aseptic technique. lt1 20:28 Lawrence Rebolledo MD is Referral Physician. snw 21:10 Patient has correct armband on for positive identification. Pulse ox on. NIBP on. rv 21:11 No provider procedures requiring assistance completed. IV discontinued, intact, rv bleeding controlled, No redness/swelling at site. Pressure dressing applied. Administered Medications: 20:59 Drug: Brilinta - Ticagrelor 90 mg Route: PO; rv 21:12 Follow up: Response: Medication administered at discharge. rv 20:59 Drug: Atorvastatin 40 mg Route: PO; rv 21:12 Follow up: Response: Medication administered at discharge. rv 20:59 Drug: KeFLEX 500 mg Route: PO; rv 21:11 Follow up: Response: Medication administered at discharge. rv Outcome: 20:30 Discharge ordered by MD. snw 21:11 Discharged to home ambulatory. rv 21:11 Condition: good 21:11 Discharge instructions given to patient, Instructed on discharge instructions, follow up and referral plans. medication usage, wound care, Demonstrated understanding of instructions, follow-up care, medications, wound care, Prescriptions given X 1. 21:12 Patient left the ED. rv Signatures: Kalie Mendez, RN RN aj1 Marbella Madsen, DIRECTOR OF FLIGHT OPERATIONS-C DIRECTOR OF FLIGHT OPERATIONS-Csnw Nell Waddell Ronaldo, RN RN rv Kirsty Castillo lt1
--- NOTE | 2019-05-19 20:31 | EDPHYS ---
Physician Documentation [facility] Name: Link Granados Age: 74 yrs Sex: Male : 1945 Arrival Date: 05/19/2019 Time: 18:58 Bed 28 Private MD: Lawrence Rebolledo R ED Physician Lucho Rene HPI: 05/19 20:10 This 74 yrs old Male presents to ER via Wheelchair with complaints of Leg Pain.snw 20:10 The patient presents with broken skin and discolored sore. The complaints affect the snw medial aspect of right calf. Context: The problem was sustained at home, noted post shower, resulted from an unknown cause, the patient can fully bear weight, the patient is able to ambulate. Onset: The symptoms/episode began/occurred suddenly, today. Modifying factors: The symptoms are alleviated by nothing. Associated signs and symptoms: The patient has no apparent associated signs or symptoms. Treatment prior to arrival includes: did not take medications. Severity of symptoms: At their worst the symptoms were moderate. The patient has not experienced similar symptoms in the past. It is unknown whether or not the patient has recently seen a physician. Historical: - Allergies: 19:09 NKDA; aj1 - Home Meds: 19:09 BRILINTA 90 mg oral tab 1 tab 2 times per day [Active]; atorvastatin 80 mg oral tab 1 aj1 tab once daily [Active]; colchicine 0.6 mg Oral cap 1 cap 2 times per day [Active]; allopurinol 300 mg Oral tab 1 tab once daily [Active]; carvedilol 25 mg oral tab 1 tab 2 times per day [Active]; furosemide 20 mg Oral tab 1 tab 2 times per day [Active]; aspirin 81 mg Oral chew 1 tab once daily [Active]; spironolactone 25 mg Oral tab 1 tab 2 times per day [Active]; cetirizine 10 mg oral tab 1 tab once daily [Active]; - PMHx: 19:09 Gout; High Cholesterol; Hypertension; Myocardial infarction; cardiac stents x4; COPD; aj1 - Immunization history:: Flu vaccine is not up to date. - Social history:: Smoking status: Patient/guardian denies using tobacco. - Ebola Screening: : Patient denies travel to an Ebola-affected area in the 21 days before illness onset. ROS: 20:09 Constitutional: Negative for fever, chills, and weight loss, Eyes: Negative for injury, snw pain, redness, and discharge, ENT: Negative for injury, pain, and discharge, Neck: Negative for injury, pain, and swelling, Cardiovascular: Negative for chest pain, palpitations, and edema, Respiratory: Negative for shortness of breath, cough, wheezing, and pleuritic chest pain, Abdomen/GI: Negative for abdominal pain, nausea, vomiting, diarrhea, and constipation, Back: Negative for injury and pain, : Negative for injury, bleeding, discharge, and swelling, Skin: Negative for injury, rash, and discoloration, Neuro: Negative for headache, weakness, numbness, tingling, and seizure, Psych: Negative for depression, anxiety, suicide ideation, homicidal ideation, and hallucinations. 20:09 MS/extremity: Positive for right lower extremity with sore that came up and is discolored, noted second area along same leg come up as well. Exam: 20:07 Constitutional: This is a well developed, well nourished patient who is awake, alert, snw and in no acute distress. Head/Face: Normocephalic, atraumatic. Eyes: Pupils equal round and reactive to light, extra-ocular motions intact. Lids and lashes normal. Conjunctiva and sclera are non-icteric and not injected. Cornea within normal limits. Periorbital areas with no swelling, redness, or edema. ENT: Nares patent. No nasal discharge, no septal abnormalities noted. Tympanic membranes are normal and external auditory canals are clear. Oropharynx with no redness, swelling, or masses, exudates, or evidence of obstruction, uvula midline. Mucous membranes moist. Neck: Trachea midline, no thyromegaly or masses palpated, and no cervical lymphadenopathy. Supple, full range of motion without nuchal rigidity, or vertebral point tenderness. No Meningismus. Chest/axilla: Normal chest wall appearance and motion. Nontender with no deformity. No lesions are appreciated. Cardiovascular: Regular rate and rhythm with a normal S1 and S2. No gallops, murmurs, or rubs. Normal PMI, no JVD. No pulse deficits. + peripheral pulses, + discoloration to lower legs c/w PAD. + varicose vein to right medial lower leg with area of denuded skin with underlying hematoma, no active bleeding. Respiratory: Lungs have equal breath sounds bilaterally, clear to auscultation and percussion. No rales, rhonchi or wheezes noted. No increased work of breathing, no retractions or nasal flaring. Abdomen/GI: Soft, non-tender, with normal bowel sounds. No distension or tympany. No guarding or rebound. No evidence of tenderness throughout. Back: No spinal tenderness. No costovertebral tenderness. Full range of motion. Skin: Warm, dry with normal turgor. Normal color with no rashes, no lesions, and no evidence of cellulitis. Neuro: Awake and alert, GCS 15, oriented to person, place, time, and situation. Cranial nerves II-XII grossly intact. Motor strength 5/5 in all extremities. Sensory grossly intact. Cerebellar exam normal. Normal gait. Psych: Awake, alert, with orientation to person, place and time. Behavior, mood, and affect are within normal limits. 20:07 Musculoskeletal/extremity: Extremities: right lower extremity as described. Vital Signs: 19:09 BP 141 / 75; Pulse 67; Resp 18; Temp 98.4; Pulse Ox 97% on R/A; Weight 88.45 kg (R); aj1 Height 5 ft. 4 in. (162.56 cm) (R); Pain 0/10; 19:09 Body Mass Index 33.47 (88.45 kg, 162.56 cm) aj1 MDM: 19:37 Patient medically screened. snw 20:30 Data reviewed: vital signs, nurses notes. Data interpreted: Pulse oximetry: on room air snw is 97 %. Interpretation: normal. Counseling: I had a detailed discussion with the patient and/or guardian regarding: the historical points, exam findings, and any diagnostic results supporting the discharge/admit diagnosis, the presence of at least one elevated blood pressure reading (>120/80) during this emergency department visit, lab results, the need for outpatient follow up, for definitive care, a family practitioner, to return to the emergency department if symptoms worsen or persist or if there are any questions or concerns that arise at home. Special discussion: I have referred the patient to see his PCP for further evaluation of high blood pressure. I discussed in detail with the patient the higher chance of wound infection based on his presenting history. Based on the history and exam findings, there is no indication for further emergent testing or inpatient evaluation. I discussed with the patient/guardian the need to see the primary care provider for further evaluation of the symptoms. 05/19 19:30 Order name: CBC with Diff; Complete Time: 20:13 snw 05/19 19:30 Order name: Chem 7; Complete Time: 20:24 snw 05/19 19:30 Order name: PT-INR; Complete Time: 20:28 snw 05/19 19:30 Order name: Ptt, Activated; Complete Time: 20:28 snw 05/19 19:30 Order name: Blood Culture* snw 05/19 20:13 Order name: Wound Care: hibiclens; Complete Time: 21:12 snw 05/19 20:13 Order name: Wound dressing: mild compression; Complete Time: 21:12 snw Administered Medications: 20:59 Drug: Brilinta - Ticagrelor 90 mg Route: PO; rv 21:12 Follow up: Response: Medication administered at discharge. rv 20:59 Drug: Atorvastatin 40 mg Route: PO; rv 21:12 Follow up: Response: Medication administered at discharge. rv 20:59 Drug: KeFLEX 500 mg Route: PO; rv 21:11 Follow up: Response: Medication administered at discharge. rv Disposition: 05/20 00:41 Co-signature as Attending Physician, Lucho Rene MD. pkl Disposition: 05/19/19 20:30 Discharged to Home. Impression: Varicose veins of right lower extremity with ulcer - small ulceration with hematoma without bleeding. - Condition is Stable. - Discharge Instructions: Wound Care, Bleeding Varicose Veins. - Prescriptions for Keflex 500 mg Oral Capsule - take 1 capsule by ORAL route every 8 hours for 10 days; 30 capsule. - Medication Reconciliation Form, Thank You Letter, Antibiotic Education, Prescription Opioid Use form. - Follow up: Lawrence Rebolledo MD; When: Tomorrow; Reason: Recheck today's complaints, Continuance of care, Re-evaluation by your physician. Follow up: Emergency Department; When: As needed; Reason: Worsening of condition. Signatures: Dispatcher [employer] Kalie Mae RN RN aj1 Lucho Rene MD MD pkl Marbella Madsen, BOTTOM WORKER-C BOTTOM WORKER-Csnw Billy, Sadi, RN RN rv Corrections: (The following items were deleted from the chart) 05/19 21:12 20:30 05/19/2019 20:30 Discharged to Home. Impression: Varicose veins of right lower rv extremity with ulcer - small ulceration with hematoma without bleeding. Condition is Stable. Forms are Medication Reconciliation Form, Thank You Letter, Antibiotic Education, Prescription Opioid Use. Follow up: Lawrence Rebolledo; When: Tomorrow; Reason: Recheck today's complaints, Continuance of care, Re-evaluation by your physician. Follow up: Emergency Department; When: As needed; Reason: Worsening of condition. snw
[2019-05-19] MEDS ORDERED: TICAGRELOR 90 MG TABLET PO ONE (20:52)
[2019-05-19] MEDS ORDERED: CEPHALEXIN 250 MG CAP ONE (20:52)
[2019-05-19] MEDS ORDERED: ATORVASTATIN 20 MG TAB ONE (20:52)
[2019-05-19 21:37] VITALS: BP 141/75; TEMP 98.4; O2SAT 97
== END 2019-05-19 21:12 | disposition home or self-care (01) ==
LOC: ER 18:53
DX: I83.891 Varicose veins of right lower extremity with other complications (principal); I10 Essential (primary) hypertension; E78.00 Pure hypercholesterolemia, unspecified; I25.2 Old myocardial infarction; J44.9 Chronic obstructive pulmonary disease, unspecified; Z79.82 Long term (current) use of aspirin; Z95.818 Presence of other cardiac implants and grafts
CPT/HCPCS: 36415; 80048; 85025; 85610; 85730; 87040; 99284

== ENCOUNTER 2021-09-08 15:30 | Inpatient (IN) | payer OTHER ==
--- OUTSIDE RECORDS SUMMARY | 2021-09-08 15:34 | XMS REPORT | Continuity of Care Document ---
:1945 Author Organization [facility] t Address [address] [place] [address] Care Team Providers Name Role Phone Sujey MCKEON Attending Clinician Unavailable JULIAN Attending Clinician Unavailable Payers Payer Name Policy Type Policy Number Effective Date Expiration Date S [facility] [place] A \T\ [id number] 2012 B 00:00:00 [employer] [place] [id number] 2015 GENERAL 00:00:00 Problems Condition Condition Condition Status Onset Resolution Last Treating Co mments Source Name Details Category Date Date Treatment Clinician Date History of History of Problem Resolve [facility] coronary coronary HL7.CCDAR2 d it y of artery artery [place] disease disease Physici ans History of History of Problem Resolve [facility] Diastolic Diastolic HL7.CCDAR2 d ity of heart heart [place] failure failure Physici ans History of History of Problem Resolve [facility] hyperlipid hyperlipid HL7.CCDAR2 d ity of emia emia [place] Physici ans History of History of Problem Resolve Univers hypertensi hypertensi HL7.CCDAR2 d ity of on on [place] Physici ans Restrictiv Restrictiv Problem Active U nivers e lung e lung HL7.CCDAR2 ity of disease disease [place] Physici ans Obesity Obesity Problem Active Univers (BMI (BMI HL7.CCDAR2 ity of 30-39.9) 30-39.9) [place] Physici ans Chronic Chronic Problem Active Univers diastolic diastolic HL7.CCDAR2 ity of heart heart [place] failure failure Physici ans Obstructiv Obstructiv Problem Active U nivers e sleep e sleep HL7.CCDAR2 ity of apnea apnea [place] Physici ans Coronary Coronary Problem Active Unive rs artery artery HL7.CCDAR2 ity of disease disease [place] Physici ans Shortness Shortness Problem Active Uni vers of breath of breath HL7.CCDAR2 ity of on on [place] exertion exertion Physic i ans Allergies, Adverse Reactions, Alerts Allergy Allergy Status Severity Reaction(s) Onset Inactive Treating Comm ents Source Name Type Date Date Clinician NO KNOWN Drug Active Univers ALLERGIE Class ity of [facility] Family History Family Member Diagnosis Comments Start Date Stop Date Source Mother Family history of [facility]y [facility] [place] diabetes mellitus Physici ans Father Family history of [facility] [place] lung cancer Physicians Sister Family history of [facility] [place] diabetes mellitus Physici ans Social History Smoking Status Start Date Stop Date Source Never smoker [facility] Physicians Medications Ordered Filled Start Stop Current Ordering Indication Dosage Frequency Signature Comments Components Source Medication Medication Date Date Medication? Clinician (SIG) Name Name Adv Advair Yes Univers Diskus Diskus ity of 500-50 500-50 [place] MCG/DOSE MCG/DOSE Physici Inhalation Inhalation ans Aerosol Aerosol Powder Powder Breath Breath Activated Activated Augmentin Augmentin Yes Unive rs 875-125 MG 875-125 MG ity of Oral Tablet Oral Tablet [place] Physici ans ProAir HFA ProAir HFA Yes Uni vers 108 (90 108 (90 ity of Base) Base) [place] MCG/ACT MCG/ACT Physici Inhalation Inhalation ans Aerosol Aerosol Solution Solution Albuterol-I Albuterol-I Yes U nivers pratropium pratropium ity of 2.5-0.5 2.5-0.5 [place] MG/3ML SOLN MG/3ML SOLN P hysici ans Allopurinol Allopurinol Yes U nivers 300 MG Oral 300 MG Oral i ty of Tablet Tablet [place] Physici ans Aspirin 81 Aspirin 81 Yes Uni vers MG Oral MG Oral ity of Tablet Tablet [place] Delayed Delayed Physici Release Release ans Atorvastati Atorvastati Yes U nivers n Calcium n Calcium ity o f 80 MG Oral 80 MG Oral Flako as Tablet Tablet Physici ans Coreg 25 MG Coreg 25 MG Yes U nivers Oral Tablet Oral Tablet i ty of [place] Physici ans Zyrtec TABS Zyrtec TABS Yes U nivers ity of [place] Physici ans Ergocalcife Ergocalcife Yes U nivers rol 22586 rol 88101 ity o f UNIT Oral UNIT Oral [place] Capsule Capsule Physici ans Furosemide Furosemide Yes Uni vers 20 MG Oral 20 MG Oral ity of Tablet Tablet [place] Physici ans Olmesartan Olmesartan Yes Uni vers Medoxomil Medoxomil ity o f 40 MG Oral 40 MG Oral Flako as Tablet Tablet Physici ans Spironolact Spironolact Yes U nivers one 25 MG one 25 MG ity o f Oral Tablet Oral Tablet [place] Physici ans Brilinta 90 Brilinta 90 Yes U nivers MG Oral MG Oral ity of Tablet Tablet [place] Physici ans Vital Signs Vital Name Observation Time Observation Value Comments Source BP Systolic 2018-06-03 14:44:00 150 mm[Hg] [facility] Physician s BP Diastolic 2018-06-03 14:44:00 71 mm[Hg] [facility] Physician s Height 2018-06-03 14:44:00 69 [in_us] [facility] Physician s Weight 2018-06-03 14:44:00 213 [lb_av] [facility] Physician s Body Mass Index 2018-06-03 14:44:00 31.45 kg/m2 Unive rsity of [facility] Physician s Temperature 2018-06-03 14:44:00 97.7 [degF] [facility] Physician s Heart Rate 2018-06-03 14:44:00 60 /min [facility] Physician s Respiration Rate 2018-06-03 14:44:00 16 /min [facility] [place] Physician s O2 SAT 2018-06-03 14:44:00 97 % [facility] Physician s Procedures Procedure Date / Time Performing Clinician Source Performed MIPS & MEPS 2018-06-03 00:00:00 [place] [facility] Physicians History of Cardiac [facility] catheterization with stent Physi cians placement Plan of Care Planned Activity Planned Date Details Comments Source Diagnostic Test 2018-06-03 MIPS & MEPS [code [facility] Pending 00:00:00 = MIPS & MEPS] Physicians Diagnostic Test 2018-06-03 MIPS & MEPS [code [facility] Pending 00:00:00 = MIPS & MEPS] Physicians Encounters Start End Encounter Admission Attending Care Care Encounter Source Date/Time Date/Time Type Type Clinicians Facility Department ID 2020-08-25 2020-08-25 Outpatient Joe MCKEON [facility] [id number] Univers 08:10:00 08:10:00 [facility] 2020-08-24 2020-08-24 Outpatient Joe MCKEON [facility] [id number] Univers 13:30:00 13:30:00 [facility]MDI [facility] 2020-08-02 2020-08-02 Outpatient R LINDA, [facility] [id number] Univers 10:40:00 10:40:00 NNAMDI [facility] 2018-06-03 2018-06-03 Appointmen RENEA JORDAN Pulmonary & [id number] Univers 14:30:00 14:30:00 t; Maggi MISHRA Sleep it [facility] M.D. ans Results This patient has no known results.
--- NOTE | 2021-09-08 16:33 | RAD REPORT ---
EXAM DESCRIPTION: RAD - Chest Single View - 09/08/2021 4:27 pm CLINICAL HISTORY: CONGESTION Chest pain. COMPARISON: Chest Single View dated 06/14/2018; Chest Pa And Lat (2 Views) dated 01/21/2018; CHEST PA A ND LAT 2 VIEW dated 03/31/2015; CHEST SINGLE VIEW dated 04/23/2013 FINDINGS: Portable technique limits examination quality. Mild pulmonary edema likely present. The lungs are under aerated. The heart is mildly enlarged in siz e. No displaced fractures. IMPRESSION: Mild CHF.
[2021-09-08 16:34] LABS: Absolute Lymphocytes (CBC) 0.9 K/uL (0.7-4.9); Hematocrit 35.2 % (39.6-49.0); Lymphocytes % 10.5 % (15.3-44.8); MPV 9.1 fL (7.6-11.3); RBC Red Blood Cell Count 3.69 M/uL (4.33-5.43)
[2021-09-08 16:37] LABS: Protime INR 1.1
[2021-09-08 16:51] LABS: ALT/SGPT 30 U/L (12-78); AST/SGOT 21 U/L (15-37); Albumin 3.5 g/dL (3.4-5.0); Alkaline Phosphatase 135 U/L (45-117); BUN Blood Urea Nitrogen 11 mg/dL (7-18); Bicarbonate 29 mmol/L (21-32); Bilirubin Direct 0.2 mg/dL (0-0.2); Bilirubin Total 0.7 mg/dL (0.2-1.0); Glucose Level 108 mg/dL (74-106); Magnesium 1.8 mg/dL (1.8-2.4); NT PRO-BNP 1100 pg/mL (<125); Potassium 4.6 mmol/L (3.5-5.1); Protein, Total 7.1 g/dL (6.4-8.2); Sodium Level 120 mmol/L (136-145); Troponin High Sensitivity 10.4 pg/mL (<58.9)
--- NOTE | 2021-09-08 18:44 | ER ---
Nurse's Notes [facility] Name: Link Granados Age: 76 yrs Sex: Male : 1945 Arrival Date: 09/08/2021 Time: 15:32 Bed 7 Private MD: Diagnosis: Systolic (congestive) heart failure-with Severe hyponatremia Presentation: 09/08 16:06 Chief complaint: Patient's son or daughter states: feet swelling and shortness of ss breath x months. Coronavirus screen: Client denies travel out of the [place] in the last 14 days. Ebola Screen: Patient denies exposure to infectious person. Patient denies travel to an Ebola-affected area in the 21 days before illness onset. Initial Sepsis Screen: Does the patient meet any 2 criteria? No. Patient's initial sepsis screen is negative. Does the patient have a suspected source of infection? No. Patient's initial sepsis screen is negative. Risk Assessment: Do you want to hurt yourself or someone else? Patient reports no desire to harm self or others. Onset of symptoms is unknown. 16:06 Method Of Arrival: Wheelchair ss 16:06 Acuity: JOHAN 3 ss Historical: - Allergies: 16:09 NKDA; ss - PMHx: 16:09 Cardiac stents x4; COPD; Gout; High Cholesterol; Hypertension; Myocardial infarction; ss CHF; - Immunization history:: Client reports receiving the 2nd dose of the Covid vaccine. - Social history:: Smoking status: Patient denies any tobacco usage or history of. Patient/guardian denies using alcohol, street drugs, The patient lives with family. - Family history:: not pertinent. Screenin:22 Abuse screen: Denies threats or abuse. Nutritional screening: No deficits noted. al4 Tuberculosis screening: No symptoms or risk factors identified. Fall Risk No fall in past 12 months (0 pts). IV access (20 points). Ambulatory Aid- Crutches/Cane/Walker (15 pts). Gait- Impaired (20 pts.). Mental Status- Oriented to own ability (0 pts). Total Adamson Fall Scale indicates High Risk Score (45 or more points). Side Rails Up X 2 Placed Close to Nursing Station Family Present and informed to notify staff if the need to leave the bedside. Assessment: 19:15 Reassessment: Patients family members expressed the feeling of patient not receiving al4 "good care" here at this hospital. This RN attempted to educate and answer all questions of family and patient. Family requested to speak to admitting physician to discuss a possible transfer or leaving AMA. Glory Parker notified and is going to bedside to speak to family and patient. 19:57 Reassessment: RN called Glory Parker to clarify NS 250 ml order that was ordered at al4 1742. Glory Parker stated "okay to not give" because patient is moving over to the floor system [facility] and will have fluid orders to give once patient is moved upstairs to the room he is admitted to. 19:57 Reassessment: Patient give bedside urinal to use. RN instructed patient on how to use al4 and patient and family demonstrated understanding. Daughter states "I can help him use the urinal and will call you if we need help.". 20:15 General: Appears in no apparent distress. comfortable, Behavior is cooperative, al4 anxious, two daughters at bedside - report patient having edema >1 month with worsening symptoms that brought him to the ED today along with fatigue. family reports that skin color is "claims analyst than normal, he is usually very dark". Pain: Complains of pain in right leg and left leg Pain currently is 6 out of 10 on a pain scale. Quality of pain is described as uncomfortable. Neuro: Level of Consciousness is awake, alert, obeys commands, Oriented to person, place, time, situation. Cardiovascular: Heart tones present Capillary refill < 3 seconds Patient's skin is warm and dry. Edema pitting to left midcalf, left ankle, left foot, right midcalf, right ankle and right foot. Respiratory: Airway is patent Respiratory effort is unlabored, Respiratory pattern is regular. : Urine is clear. 20:35 Reassessment: attempted to call report - spoke to Ana. unable to give report at al4 this time. I was told CINTIA Ware will call me back for report when she is able. 20:54 Reassessment: Report given to CINTIA Ware. Plan: waiting for patient to be "flipped" in al4 the system to bed 217 and then someone will transport patient to the second floor when available. 21:45 Reassessment: still waiting on available staff member to transfer patient upstairs. al4 patients family has been educated on wait time and that ED staff is working diligently to get patient upstairs. no outstanding orders for ED staff at this time. Vital Signs: 16:06 BP 173 / 93; Resp 22; Temp 97.8(O); Weight 91.63 kg; Height 5 ft. 5 in. (165.10 cm); ss Pain 0/10; 19:30 BP 185 / 81; Pulse 64; Resp 21 S; Pulse Ox 96% on R/A; al4 19:50 BP 207 / 80; Pulse 69; Resp 23; Pulse Ox 94% ; al4 20:00 BP 164 / 75; Pulse 66; Resp 23 S; Pulse Ox 95% on R/A; al4 20:15 BP 162 / 86; Pulse 67; Resp 21; Pulse Ox 96% ; Pain 6/10; al4 16:06 Body Mass Index 33.61 (91.63 kg, 165.10 cm) ss ED Course: 15:32 Patient arrived in ED. ds1 15:56 Saige Farrell MD is Attending Physician. ma2 16:09 Triage completed. ss 16:09 Arm band placed on right wrist. ss 16:16 Inserted saline lock: 22 gauge in right upper arm, using aseptic technique. Blood jg9 collected. 16:29 XRAY Chest (1 view) In Process Unspecified. EDMS 18:44 Marquise Sawyer is Hospitalizing Provider. ma2 20:11 Antonio Ballard is Primary Nurse. al4 20:22 Patient has correct armband on for positive identification. Bed in low position. Side al4 rails up X2. Adult w/ patient. campus monitor on. Pulse ox on. NIBP on. 20:32 No provider procedures requiring assistance completed. Patient admitted, IV remains in al4 place. Administered Medications: 19:57 Drug: Lasix (furosemide) 40 mg Route: IVP; Site: right antecubital; al4 20:57 Follow up: Response: No adverse reaction al4 20:27 Not Given (Physician Discretion; Glory Parker gave verbal orders okay to not givee): NS al4 0.9% 250 ml IV at calculated rate once Output: 20:40 Urine: 500ml (Voided); Total: 500ml. al4 Outcome: 18:44 Decision to Hospitalize by Provider. ma2 20:32 Admitted to Med/surg room 217. al4 20:32 Condition: stable 20:32 Discharge instructions given to patient, family, Instructed on the need for admit, Demonstrated understanding of instructions. 22:07 Patient left the ED. al4 Signatures: Dispatcher [employer] [facility] Brook Borges dale1 Mary Dao RN RN ss Saige Farrell MD MD ma2 Antonio Ballard al4 Shruthi Cruz RN RN [id number]
--- NOTE | 2021-09-08 18:44 | EDPHYS ---
Physician Documentation [facility] Name: Link Granados Age: 76 yrs Sex: Male : 1945 Arrival Date: 09/08/2021 Time: 15:32 Bed 7 Private MD: ED Physician Saige Farrell HPI: 09/08 17:49 This 76 yrs old Male presents to ER via Wheelchair with complaints of ma2 Dizziness, Leg Swelling. 17:49 As history of CHF MIs in the past cardiac stents placed 2018, patient presents with ma2 dizziness for 2 days, patient states he is unable to walk because he feels dizzy, also states he has lower extremity edema pitting equal bilaterally that is been getting worse over the last 2 days got really worse this morning, patient said he is unable to walk today due to pain.. Historical: - Allergies: 16:09 NKDA; ss - PMHx: 16:09 Cardiac stents x4; COPD; Gout; High Cholesterol; Hypertension; Myocardial infarction; ss CHF; - Immunization history:: Client reports receiving the 2nd dose of the Covid vaccine. - Social history:: Smoking status: Patient denies any tobacco usage or history of. Patient/guardian denies using alcohol, street drugs, The patient lives with family. - Family history:: not pertinent. ROS: 17:49 Constitutional: Negative for fever, chills, and weight loss, Eyes: Negative for injury, ma2 pain, redness, and discharge, ENT: Negative for injury, pain, and discharge, Neck: Negative for injury, pain, and swelling, Cardiovascular: Negative for chest pain, palpitations, and edema, Respiratory: Negative for shortness of breath, cough, wheezing, and pleuritic chest pain, Abdomen/GI: Negative for abdominal pain, nausea, diarrhea, and constipation, Back: Negative for injury and pain, MS/Extremity: negative for injury and deformity, Skin: Negative for injury, rash, and discoloration, Neuro: Negative for headache, weakness, numbness, tingling, and seizure, Psych: Negative for depression, anxiety, suicide ideation, homicidal ideation, and hallucinations, Allergy/Immunology: Negative for hives, rash, and allergies, Endocrine: Negative for neck swelling, polydipsia, polyuria, polyphagia, and marked weight changes. 17:49 MS/Extremity: Negative for injury and deformity. ma2 Exam: 17:49 Constitutional: This is a well developed, well nourished patient who is awake, alert, ma2 and in no acute distress. ENT: Nares patent. No nasal discharge, no septal abnormalities noted. Tympanic membranes are normal and external auditory canals are clear. Oropharynx with no redness, swelling, or masses, exudates, or evidence of obstruction, uvula midline. Mucous membranes moist. Neck: Trachea midline, no thyromegaly or masses palpated, and no cervical lymphadenopathy. Supple, full range of motion without nuchal rigidity, or vertebral point tenderness. No Meningismus. Chest/axilla: Normal chest wall appearance and motion. Nontender with no deformity. No lesions are appreciated. Cardiovascular: Regular rate and rhythm with a normal S1 and S2. No gallops, murmurs, or rubs. Normal PMI, no JVD. No pulse deficits. Respiratory: Lungs have equal breath sounds bilaterally, clear to auscultation and percussion. No rales, rhonchi or wheezes noted. No increased work of breathing, no retractions or nasal flaring. Abdomen/GI: Soft, non-tender, with normal bowel sounds. No distension or tympany. No guarding or rebound. No evidence of tenderness throughout. Skin: Warm, dry with normal turgor. Normal color with no rashes, no lesions, and no evidence of cellulitis. MS/ Extremity: 4+ lower extremity edema pitting equal bilaterally, patient also has cellulitis right anterior tibia measures 5 x 5 inches, there is an old wound that is partially healing with good granulation tissue, there is no abscess or palpable crepitation, otherwise Pulses equal, no cyanosis. Neurovascular intact. Full, normal range of motion. Neuro: Awake and alert, GCS 15, oriented to person, place, time, and situation. Cranial nerves II-XII grossly intact. Motor strength 5/5 in all extremities. Sensory grossly intact. Cerebellar exam normal. Normal gait. Vital Signs: 16:06 BP 173 / 93; Resp 22; Temp 97.8(O); Weight 91.63 kg; Height 5 ft. 5 in. (165.10 cm); ss Pain 0/10; 19:30 BP 185 / 81; Pulse 64; Resp 21 S; Pulse Ox 96% on R/A; al4 19:50 BP 207 / 80; Pulse 69; Resp 23; Pulse Ox 94% ; al4 20:00 BP 164 / 75; Pulse 66; Resp 23 S; Pulse Ox 95% on R/A; al4 20:15 BP 162 / 86; Pulse 67; Resp 21; Pulse Ox 96% ; Pain 6/10; al4 16:06 Body Mass Index 33.61 (91.63 kg, 165.10 cm) ss MDM: 16:18 Patient medically screened. ma2 17:49 Differential diagnosis: cardiac arrhythmia, generalized weakness, hyperventilation, ma2 idiopathic dizziness, syncope. Data reviewed: vital signs, nurses notes, EMS record, lab test result(s), EKG, radiologic studies. Counseling: I had a detailed discussion with the patient and/or guardian regarding: the historical points, exam findings, and any diagnostic results supporting the discharge/admit diagnosis, the presence of at least one elevated blood pressure reading (>120/80) during this emergency department visit, the need for outpatient follow up. Response to treatment: the patient's symptoms have markedly improved after treatment. 18:42 ED course: Has hyponatremia severe hyponatremia sodium is 120, this is likely was ma2 causing the dizziness, is also mild CHF, chest x-ray shows mild pulmonary edema given Lasix, discussed with Glory Parker hospitalist. 09/08 15:56 Order name: Basic Metabolic Panel; Complete Time: 17:41 09/08 15:56 Order name: CBC with Diff; Complete Time: 17:41 09/08 15:56 Order name: LFT's; Complete Time: 17:41 09/08 15:56 Order name: Magnesium; Complete Time: 17:41 09/08 15:56 Order name: NT PRO-BNP; Complete Time: 17:41 09/08 15:56 Order name: PT-INR; Complete Time: 17:41 09/08 15:56 Order name: Troponin HS; Complete Time: 17:41 09/08 15:56 Order name: XRAY Chest (1 view); Complete Time: 17:41 sc09/08 15:56 Order name: EKG; Complete Time: 15:57 09/08 15:56 Order name: Cardiac monitoring; Complete Time: 20:14 09/08 15:56 Order name: EKG - Nurse/Tech; Complete Time: 20:55 [facility] 09/08 16:25 Order name: COVID-19 SARS RT PCR (Document "Date of Onset" if Symptomatic) 09/08 15:56 Order name: IV Saline Lock; Complete Time: 20:14 [facility] 09/08 15:56 Order name: Labs collected and sent; Complete Time: 20:15 [facility] 09/08 15:56 Order name: O2 Per Protocol; Complete Time: 20:15 [facility] 09/08 15:56 Order name: O2 Sat Monitoring; Complete Time: 20:15 [facility] Administered Medications: 19:57 Drug: Lasix (furosemide) 40 mg Route: IVP; Site: right antecubital; al4 20:57 Follow up: Response: No adverse reaction al4 20:27 Not Given (Physician Discretion; Glory Parker gave verbal orders okay to not givee): NS al4 0.9% 250 ml IV at calculated rate once Disposition Summary: 09/08/21 18:44 Hospitalization Ordered Hospitalization Status: Inpatient Admission ma2 Provider: Marquise Sawyer ma Location: Telemetry/MedSurg (Inpatient) ma2 Condition: Stable ma2 Problem: new ma2 Symptoms: are unchanged ma2 Bed/Room Type: Standard [facility] Room Assignment: [facility](09/08/21 19:55) Diagnosis - Systolic (congestive) heart failure - with Severe hyponatremia ma2 Forms: - Medication Reconciliation Form ma2 - SBAR form ma2 Signatures: Dispatcher [employer] [facility] Brigette Caal RN RN Mary Dao RN RN Saige Farrell MD MD ma2 Antonio Ballard al4 Corrections: (The following items were deleted from the chart) 17:51 17:49 Constitutional: Negative for fever, chills, and weight loss, Eyes: Negative for ma2 injury, pain, redness, and discharge, ENT: Negative for injury, pain, and discharge, Neck: Negative for injury, pain, and swelling, Cardiovascular: Negative for chest pain, palpitations, and edema, Respiratory: Negative for shortness of breath, cough, wheezing, and pleuritic chest pain, Abdomen/GI: Negative for abdominal pain, nausea, diarrhea, and constipation, Back: Negative for injury and pain, MS/Extremity: 4+ lower extremity edema pitting equal bilaterally, patient also has cellulitis right anterior tibia measures 5 x 5 inches, there is an old wound that is partially healing with good granulation tissue, there is no abscess or palpable crepitation, otherwise negative for injury and deformity, Skin: Negative for injury, rash, and discoloration, Neuro: Negative for headache, weakness, numbness, tingling, and seizure, Psych: Negative for depression, anxiety, suicide ideation, homicidal ideation, and hallucinations, Allergy/Immunology: Negative for hives, rash, and allergies, Endocrine: Negative for neck swelling, polydipsia, polyuria, polyphagia, and marked weight changes, ma2 19:55 18:44 sc2
[2021-09-08] MEDS ORDERED: FUROSEMIDE 40 MG/4 ML VIAL ONE (19:52)
[2021-09-08] MEDS ORDERED: NA CHLORIDE 0.9% 250 ML ONE (19:52)
--- NOTE | 2021-09-08 21:47 | P.HP ---
Certification for Inpatient Patient admitted to: Inpatient With expected LOS: >2 Midnights Patient will require the following post-hospital care: None Practitioner: I am a practitioner with admitting privileges, knowledge of patient current condition, hospital course, and medical plan of care. Services: Services provided to patient in accordance with Admission requirements found in Title 42 Section 412.3 of the Code of Federal Regulations Patient History Date of Service: 09/08/21 Primary Care Provider: Amaury Reason for admission: Anasarca, Hyponatremia History of Present Illness: Patient is a 76-year-old male with past medical history of VT (s/p 4 stents), CHF, hypertension, hyperlipidemia, COPD who presented to the ED with complaints of shortness of breath for the past few weeks and increasing pain in his legs. He was noted to have 3+ pitting edema in his lower extremities bilaterally, BNP elevated at 1100, and CXR showed mild CHF. Other labs significant for sodium of 120. He states that he has not seen a rv technician in over a year due to COVID but reports that he is compliant with his medications. We will admit patient for further evaluation and treatment. Allergies No Known Drug Allergies Allergy (Verified 06/15/18 04:03) Unknown Home Medications: Aspirin [Aspirin EC 81 MG] 81 mg PO DAILY 06/15/18 Atorvastatin Calcium [Lipitor] 80 mg PO BEDTIME 06/15/18 Cetirizine HCl [All Day Allergy] 10 mg PO DAILY 06/15/18 Ergocalciferol (Vitamin D2) [Vitamin D2] 50,000 units PO DAILY 06/15/18 Furosemide [Lasix*] 40 mg PO DAILY 06/15/18 Nitroglycerin [Nitrostat*] 0.4 mg SL PRN 06/15/18 Olmesartan Medoxomil 40 mg PO DAILY 06/15/18 Spironolactone [Aldactone*] 12.5 mg PO DAILY 06/15/18 Ticagrelor [Brilinta*] 90 mg PO BID 06/15/18 allopurinoL [Zyloprim*] 300 mg PO DAILY 06/15/18 carvediloL [Coreg*] 25 mg PO BID 06/15/18 - Past Medical/Surgical History Diabetic: No -: dyslipidemia -: chf -: VT -: COPD -: gout -: hypertension -: metabolic syndrome -: left knee sx- tkr -: heart stent x 4 Psychosocial/ Personal History: Patient lives at home with his son. - Family History Mother -: Diabetes - Social History Smoking Status: Former smoker Alcohol use: No CD- Drugs: No Caffeine use: No Place of Residence: Home Review of Systems General: Weakness Respiratory: Shortness of Breath Cardiovascular: Edema Musculoskeletal: Leg Pain, Foot Pain Physical Examination - Physical Exam General: Alert, In no apparent distress, Oriented x3 HEENT: Atraumatic, PERRLA, Mucous membr. moist/pink, EOMI, Sclerae nonicteric Neck: Supple, 2+ carotid pulse no bruit, No LAD, Without JVD or thyroid abnormality Respiratory: Clear to auscultation bilaterally, Normal air movement Cardiovascular: Regular rate/rhythm, Normal S1 S2, Edema (3+ pitting edema BLE) Gastrointestinal: Normal bowel sounds, Soft and benign, No tenderness Musculoskeletal: Tenderness Integumentary: No rashes, Skin breakdown (R medial calf ) Neurological: Normal speech, Normal strength at 5/5 x4 extr, Normal tone, Normal affect - Studies Laboratory Data (last 24 hrs) 09/08/21 16:10: PT 12.1, INR 1.10 09/08/21 16:10: WBC 8.2, Hgb 12.0 L, Hct 35.2 L, Plt Count 185 09/08/21 16:10: Sodium 120 L, Potassium 4.6, BUN 11, Creatinine 0.50 L, Glucose 108 H, Magnesium 1.8, Total Bilirubin 0.7, AST 21, ALT 30, Alkaline Phosphatase 135 H Assessment and Plan - Problems (Diagnosis) (1) Anasarca Current Visit: Yes Status: Acute (2) Systolic heart failure Current Visit: Yes Status: Chronic Qualifiers: Heart failure chronicity: acute on chronic Qualified Code(s): I50.23 - Acute on chronic systolic (congestive) heart failure (3) Hyponatremia Current Visit: Yes Status: Acute (4) Hypertension Current Visit: Yes Status: Chronic Qualifiers: Hypertension type: primary hypertension Qualified Code(s): I10 - Essential (primary) hypertension (5) COPD (chronic obstructive pulmonary disease) Current Visit: No Status: Chronic Qualifiers: COPD type: unspecified COPD Qualified Code(s): J44.9 - Chronic obstructive pulmonary disease, unspecified (6) Dyslipidemia Current Visit: No Status: Acute (7) Gout Current Visit: No Status: Chronic - Plan -Lasix 40 mg IV twice daily until edema improves -Patient also was found to be hyponatremic with a sodium of 120. Gentle IV hydration with NS at 75 cc an hour. Monitor sodium -Cardiology consulted and echo ordered. Last echo in 2019 did not show decreased ejection fraction -Patient has a cardiac history and has 4 stents. Will monitor on telemetry. Patient denies chest pain at this time -Patient has been hypertensive in the ED. We will continue home antihyp ertensives and hydralazine as needed -Continue other home medications -Lovenox for DVT prophylax Discharge Plan: Home Plan to discharge in: Greater than 2 days - Advance Directives Does patient have a Living Will: No Does patient have a Durable POA for Healthcare: No - Code Status/Comfort Care Code Status Assessed: Yes (Full) Critical Care: No Time Spent Managing Pts Care (In Minutes): 50
[2021-09-08] MEDS: HYDRALAZINE HCL 20 MG/ML VIAL IV PRN (23:23)
[2021-09-08] MEDS: ACETAMINOPHEN 500 MG TAB PO PRN (23:23)
[2021-09-08] MEDS: NA CHLORIDE 0.9% 1,000 ML IV SCH (23:26)
[2021-09-09 01:10] LABS: Urine Appearance Clear (Clear); Urine Bilirubin Negative (Negative); Urine Blood Negative (Negative); Urine Color Yellow (Yellow); Urine Glucose Negative (Negative); Urine Protein Negative (Negative); Urine Specific Gravity 1.015 (1.005-1.030); Urine Urobilinogen 0.2 mg/dL (0.2-1.0); Urine pH 6.5 (5.0-7.0)
[2021-09-09 01:12] LABS: Urine Microscopic Reflex NO UMIC
[2021-09-09] MEDS: ALBUTEROL 2.5 MG/3 ML NEB SOL NEB PRN ×2 (02:03→10:58)
[2021-09-09] MEDS: GABAPENTIN 100 MG CAP PO PRN ×2 (04:02→21:16)
[2021-09-09] MEDS: LORazepam 2 MG/ML VIAL IV PRN (04:02)
[2021-09-09 06:17] LABS: Absolute Lymphocytes (CBC) 1.3 K/uL (0.7-4.9); Hematocrit 34.2 % (39.6-49.0); Lymphocytes % 14.8 % (15.3-44.8); RBC Red Blood Cell Count 3.58 M/uL (4.33-5.43)
[2021-09-09 06:43] LABS: ALT/SGPT 27 U/L (12-78); AST/SGOT 21 U/L (15-37); Albumin 3.1 g/dL (3.4-5.0); Alkaline Phosphatase 115 U/L (45-117); BUN Blood Urea Nitrogen 11 mg/dL (7-18); Bicarbonate 27 mmol/L (21-32); Bilirubin Total 0.8 mg/dL (0.2-1.0); Glucose Level 80 mg/dL (74-106); HDL Cholesterol 77 mg/dL (40-60); LDL Cholesterol, Calculated 26 mg/dL (<130); Magnesium 1.9 mg/dL (1.8-2.4); Phosphorus 3.1 mg/dL (2.5-4.9); Potassium 3.9 mmol/L (3.5-5.1); Protein, Total 6.2 g/dL (6.4-8.2); Sodium Level 122 mmol/L (136-145)
[2021-09-09] MEDS: FUROSEMIDE 40 MG/4 ML VIAL IV SCH ×2 (09:00→16:02)
[2021-09-09] MEDS: ENOXAPARIN 40 MG/0.4 ML SQ SCH (09:01)
[2021-09-09] MEDS: LOSARTAN POTASSIUM 50 MG TABLET PO SCH (09:02)
[2021-09-09] MEDS: CLOPIDOGREL 75 MG TABLET PO SCH (09:02)
[2021-09-09] MEDS: allopurinoL 300 MG TAB PO SCH (09:02)
[2021-09-09] MEDS: NA CHLORIDE 0.9% 1,000 ML IV SCH (10:55)
[2021-09-09] MEDS ORDERED: PNEUMOCOCCAL VACCINE 0.5 ML IMVAC ONE (11:00)
--- NOTE | 2021-09-09 15:39 | P.PN ---
Subjective Date of Service: 09/09/21 Primary Care Provider: Amaury Chief Complaint: Anasarca, Hyponatremia Patient reporting some improvement in his lower extremity swelling. Also reports improvement in his shortness of breath. Physical Examination - Vital Signs Temperature: 96.7 F Blood Pressure: 166/77 Pulse: 68 Respirations: 16 Pulse Ox (%): 90 - Studies Laboratory Data (last 24 hrs) 09/08/21 16:10: PT 12.1, INR 1.10 09/08/21 16:10: WBC 8.2, Hgb 12.0 L, Hct 35.2 L, Plt Count 185 09/08/21 16:10: Sodium 120 L, Potassium 4.6, BUN 11, Creatinine 0.50 L, Glucose 108 H, Magnesium 1.8, Total Bilirubin 0.7, AST 21, ALT 30, Alkaline Phosphatase 135 H Assessment And Plan - Current Problems (Diagnosis) (1) Acute on chronic diastolic heart failure Current Visit: Yes Status: Acute (2) Malignant hypertension Current Visit: Yes Status: Acute (3) COPD (chronic obstructive pulmonary disease) Current Visit: No Status: Chronic Qualifiers: COPD type: unspecified COPD Qualified Code(s): J44.9 - Chronic obstructive pulmonary disease, unspecified (4) Gout Current Visit: No Status: Chronic - Plan Physical Exam General: Alert, In no apparent distress, Oriented x3 HEENT: Atraumatic, PERRLA, Mucous membr. moist/pink, EOMI, Sclerae nonicteric Neck: Supple, No LAD, Without JVD. Respiratory: Clear to auscultation bilaterally, Normal air movement Cardiovascular: Regular rate/rhythm, Normal S1 S2, 3+ pitting edema BLE Gastrointestinal: Normal bowel sounds, Soft and benign, No tenderness Musculoskeletal: Tenderness Integumentary: No rashes. Neurological: Normal speech, Normal strength at 5/5 x4 extr, Normal affect Plan: Continue IV Lasix Discontinue IV fluid Fluid restriction for hyponatremia Nephrology consulted. Obtain echocardiogram. Blood pressure control Supplemental oxygen as needed. Bronchodilators for COPD.
[2021-09-09] MEDS: AMLODIPINE 10 MG TAB PO SCH (16:02)
[2021-09-09] MEDS: HYDRALAZINE HCL 20 MG/ML VIAL IV PRN (16:04)
[2021-09-09] MEDS: IPRATROPIUM BROM 0.5MG/2.5ML NEB SCH (20:17)
[2021-09-09] MEDS: ATORVASTATIN 80 MG TAB PO SCH (21:16)
[2021-09-10] MEDS: IPRATROPIUM BROM 0.5MG/2.5ML NEB SCH ×5 (02:20→19:30)
[2021-09-10 06:03] LABS: Hematocrit 34.1 % (39.6-49.0); Lymphocytes % 11.1 % (15.3-44.8); MPV 9.1 fL (7.6-11.3); RBC Red Blood Cell Count 3.58 M/uL (4.33-5.43)
[2021-09-10 06:26] LABS: ALT/SGPT 25 U/L (12-78); AST/SGOT 23 U/L (15-37); Alkaline Phosphatase 112 U/L (45-117); BUN Blood Urea Nitrogen 19 mg/dL (7-18); Bicarbonate 30 mmol/L (21-32); Bilirubin Total 0.8 mg/dL (0.2-1.0); Glucose Level 92 mg/dL (74-106); Potassium 3.7 mmol/L (3.5-5.1); Protein, Total 6.2 g/dL (6.4-8.2); Sodium Level 123 mmol/L (136-145)
[2021-09-10] MEDS: CLOPIDOGREL 75 MG TABLET PO SCH (09:00)
[2021-09-10] MEDS: LOSARTAN POTASSIUM 50 MG TABLET PO SCH (09:00)
[2021-09-10] MEDS: AMLODIPINE 10 MG TAB PO SCH (09:00)
[2021-09-10] MEDS: HOME MED 1 EA UNK (Fluticasone/Umeclidin/Vilanter [Trelegy Ellipta 200-62.5-25] Blst.W.Dev IH SCH (09:00)
[2021-09-10] MEDS: ENOXAPARIN 40 MG/0.4 ML SQ SCH (09:00)
[2021-09-10] MEDS: FUROSEMIDE 40 MG/4 ML VIAL IV SCH ×3 (09:00→17:00)
[2021-09-10] MEDS: allopurinoL 300 MG TAB PO SCH (09:00)
--- NOTE | 2021-09-10 19:31 | P.PN ---
Subjective Date of Service: 09/10/21 Primary Care Provider: Amaury Chief Complaint: Anasarca, Hyponatremia Patient states he feels much better today. His leg edema continue to improve. Currently off oxygen and tolerating room air. Physical Examination - Vital Signs Temperature: 97.8 F Blood Pressure: 116/59 Pulse: 65 Respirations: 18 Pulse Ox (%): 98 Assessment And Plan - Current Problems (Diagnosis) (1) Acute on chronic diastolic heart failure Current Visit: Yes Status: Acute (2) Malignant hypertension Current Visit: Yes Status: Acute (3) COPD (chronic obstructive pulmonary disease) Current Visit: No Status: Chronic Qualifiers: COPD type: unspecified COPD Qualified Code(s): J44.9 - Chronic obstructive pulmonary disease, unspecified (4) Gout Current Visit: No Status: Chronic - Plan Physical Exam General: Alert, In no apparent distress. HEENT: PERRLA, Mucous membr. moist/pink, EOMI, Sclerae nonicteric Neck: Supple, No LAD, Without JVD. Respiratory: Clear to auscultation bilaterally, Normal air movement Cardiovascular: Regular rate/rhythm, Normal S1 S2, 3+ pitting edema BLE Gastrointestinal: Normal bowel sounds, Soft and benign, No tenderness Musculoskeletal: Tenderness Integumentary: No rashes. Neurological: Normal speech, Normal strength at 5/5 x4 extr, Normal affect Plan: Continue IV Lasix Fluid restriction for hyponatremia Awaiting nephrology input. Echocardiogram done and the result is pending. Cardiology consult. Continue bronchodilators for COPD. Blood pressure significantly improved. Continue current regimen.
[2021-09-10] MEDS: ATORVASTATIN 80 MG TAB PO SCH (21:03)
[2021-09-10] MEDS: GABAPENTIN 100 MG CAP PO PRN (23:58)
[2021-09-10] MEDS: LORazepam 2 MG/ML VIAL IV PRN (23:58)
[2021-09-11] MEDS: IPRATROPIUM BROM 0.5MG/2.5ML NEB SCH ×2 (02:15→14:02)
[2021-09-11 03:11] VITALS: BMI 36.3
[2021-09-11 05:39] LABS: Absolute Lymphocytes (CBC) 0.9 K/uL (0.7-4.9); Hematocrit 33.5 % (39.6-49.0); Lymphocytes % 11.3 % (15.3-44.8); MPV 8.8 fL (7.6-11.3); RBC Red Blood Cell Count 3.49 M/uL (4.33-5.43)
[2021-09-11 06:01] LABS: ALT/SGPT 32 U/L (12-78); AST/SGOT 52 U/L (15-37); Albumin 2.9 g/dL (3.4-5.0); Alkaline Phosphatase 113 U/L (45-117); BUN Blood Urea Nitrogen 28 mg/dL (7-18); Bicarbonate 31 mmol/L (21-32); Bilirubin Total 0.8 mg/dL (0.2-1.0); Glucose Level 87 mg/dL (74-106); Potassium 3.8 mmol/L (3.5-5.1); Protein, Total 6.1 g/dL (6.4-8.2); Sodium Level 121 mmol/L (136-145)
--- NOTE | 2021-09-11 06:18 | P.PN ---
Date of Service: 09/11/21 Subjective: feels breathing is slightly worse this morning feels swelling has improved in legs no chest pain, no nausea/vomiting ROS: 10 point ROS as noted above, otherwise negative Physical exam GEN: Alert, oriented, sitting up in chair HEENT: Normal conjunctiva, sclera anicteric CV: Regular rate and rhythm, 2+ pitting b/l edema in lower extremities Pulm: mild labored respirations on 2L NC, b/l rales ABD: Soft, nontender, nondistended Neuro: Normal speech, normal affect Problem List Acute on chronic diastolic CHF exacerbation hyponatremia Malignant hypertension Chronic COPD Gout Continue IV Lasix Swelling and respirations seem to be improving suspect hypontaremia secondary to hypervolemia Fluid restriction for hyponatremia Nephrology consulted Echocardiogram with normal EF, noted some compliance issues. Cardiology consulted. Recommended changing Norvasc to Coreg, consider spironolactone or increasing Lasix if blood pressure can tolerate Continue bronchodilators for COPD Patient requesting pulmonology consult, states he seen Dr. Bland previously he may be having a mild component of COPD exacerbation VTE: lovenox Code: full Dispo: home vs SNF, PT consulted Time Spent Managing Pts Care (In Minutes): 35
--- NOTE | 2021-09-11 07:05 | RAD REPORT ---
EXAM DESCRIPTION: RAD - Chest Single View - 09/11/2021 6:32 am CLINICAL HISTORY: SOB, f/u opacities, CHF COMPARISON: Portable 09/08/2021 TECHNIQUE: AP portable chest image was obtained 09/11/2021 6:32 am . FINDINGS: Lung volumes are very low which limits retrocardiac and posterior gutter assessment. Mid a nd upper lung johnson are clear of any significant lung parenchymal process. No engorgement of the upp er vasculature. Heart size is normal range. Atelectasis or infiltrate may be present at the left base . Left hemidiaphragm is partially obscured and left heart border partially obscured. No pneumothorax or large pleural effusion. IMPRESSION: Limited portable imaging with left greater than right bibasilar opacities from atelectas is and/ or infiltrate. The CHF/ volume overload findings of September 08 have shown improvement.
[2021-09-11] MEDS: HOME MED 1 EA UNK (Fluticasone/Umeclidin/Vilanter [Trelegy Ellipta 200-62.5-25] Blst.W.Dev IH SCH (09:00)
[2021-09-11] MEDS: AMLODIPINE 10 MG TAB PO SCH (09:06)
[2021-09-11] MEDS: CLOPIDOGREL 75 MG TABLET PO SCH (09:07)
[2021-09-11] MEDS: LOSARTAN POTASSIUM 50 MG TABLET PO SCH (09:07)
[2021-09-11] MEDS: allopurinoL 300 MG TAB PO SCH (09:07)
[2021-09-11] MEDS: ENOXAPARIN 40 MG/0.4 ML SQ SCH (09:08)
[2021-09-11] MEDS: FUROSEMIDE 40 MG/4 ML VIAL IV SCH ×2 (09:08→16:23)
--- NOTE | 2021-09-11 09:37 | EKG ---
Test Date: 2021-09-08 Test Time: 16:09:36 Retail Area Manager: MARCELA MEASUREMENT RESULTS: Intervals: Rate: 58 VA: QRSD: 88 QT: 404 QTc: 396 [place]: P: VA: QRS: 94 T: -2 INTERPRETIVE STATEMENTS: Junctional rhythm Rightward axis Cannot rule out Anterior infarct, age undetermined Abnormal ECG Compared to ECG 06/14/2018 20:19:50 Junctional rhythm now present Right-axis deviation now present Myocardial infarct finding now present Sinus rhythm no longer present First degree AV block no longer present ST (T wave) deviation no longer present Possible ischemia no longer present Electronically Signed On 09-11-21 09:32:15 CDT by Pablo Duncan
--- NOTE | 2021-09-11 10:29 | ECHO ---
HEIGHT: 5 ft 4 in WEIGHT: 212 lb 0 oz DATE OF STUDY: 09/10/[address]: Esme Parker 2-DIMENSIONAL: YES M.MODE: YES DOPPLER: YES COLOR FLOW: YES TDS: YES PORTABLE: YES DEFINITY: NO BUBBLE STUDY: NO DIAGNOSIS: CONGESTIVE HEART FAILURE CARDIAC HISTORY: CATHERIZATION: SURGERY: PROSTHETIC VALVE: PACEMAKER: MEASUREMENTS (cm) DIASTOLIC (NORMALS) SYSTOLIC (NORMALS) IVSd 1.4 (0.6-1.2) LA Diam 4.1 (1.9-4.0) LVEF 60% LVIDd 3.6 (3.5-5.7) LVIDs 2.5 (2.0-3.5) %FS 31% LVPWd 1.2 (0.6-1.2) Ao Diam 3.1 (2.0-3.7) 2 DIMENSIONAL ASSESSMENT: RIGHT ATRIUM: NORMAL LEFT ATRIUM: DILATED RIGHT VENTRICLE: NORMAL LEFT VENTRICLE: NORMAL TRICUSPID VALVE: NORMAL MITRAL VALVE: MITRAL ANNULAR CALCIFICATION PULMONIC VALVE: NORMAL AORTIC VALVE: SCLEROSIS PERICARDIAL EFFUSION: NONE AORTIC ROOT: NORMAL LEFT VENTRICULAR WALL MOTION: DECREASED LEFT VENTRICULAR COMPLIANCE. DOPPLER/COLOR FLOW: MILD TRICUSPID REGURGITATION. COMMENTS: NORMAL LEFT VENTRICULAR SIZE. NORMAL LEFT VENTRICULAR EJECTION FRACTION. DECREASED LEFT VENTRICULAR COMPLIANCE. MITRAL ANNULAR CALCIFICATION. LEFT ATRIAL ENLARGEMENT. AORTIC SCLEROSIS. TECHNOLOGIST: Jennifer PEACE
[2021-09-11] MEDS ORDERED: IPRATROPIUM BROM 0.5MG/2.5ML NEB PRN (14:23)
--- NOTE | 2021-09-11 15:33 | CON ---
Date of Consultation: 09/11/[address] Bauer on 09/08/2021. I saw the patient on 09/11/2021. Reason For Consultation: Anasarca and congestive heart failure. History Of Present Illness: Mr. Granados is a 76-year-old. Has a history of CAD, status post multiple stents, chronic diastolic congestive heart failure, COPD, hypertension, and dyslipidemia. He sees Alba Mcdermott in [place] for his cardiology. He sees Dr. Bland. He came in with anasarca, pedal edema , shortness of breath, PND, orthopnea. No palpitation. No syncope. No chest pain. Denies nausea, vomiting, diaphoresis. Denies fever or chills. Past Medical History: As stated above. Allergies: NONE. Review of Systems: Negative. Social History: Negative. Family History: Noncontributory. Medications: At home include Lipitor, inhalers, , Plavix, Norvasc, Lasix, hydralazine, and losartan. Physical Examination: General: He is morbidly obese. Vital Signs: Stable, afebrile. HEENT: Negative. Neck: Supple with no bruit. Chest: Reveals rales at both bases. Cardiac: Revealed S4 gallops. Regular rhythm and rate. No murmurs or rubs. Abdomen: Obese, anasarca, ascites. Extremities: Revealed chronic edema 2+ to the knees. Skin: Dry and intact. Neurologic: He was nonfocal. Impression And Plan: 1.Acute on chronic diastolic congestive heart failure. 2.Coronary artery disease, status post multiple stents. 3.Morbid obesity. 4.Hypertension. 5.Dyslipidemia. 6.Chronic obstructive pulmonary disease. His echocardiogram done, showed normal ejection fraction w ith left ventricular compliance issues. I think we need to continue his inhalers, Lipitor, Lovenox, Plavix. I think we should change his Norvasc to carvedilol. We should increase his IV Lasix dose, c ontinue hydralazine and losartan, consider low-dose Aldactone. Consider Pulmonary consultation with Dr. Bland. The patient will need an outpatient Lexiscan as an outpatient down the road and I will be happy to see him in the office. I did talk to his son and him and Dr. Bauer in this r egard. TRINA/KYLIE Voice ID: [id number] Report ID: [id number]
[2021-09-11] MEDS: GABAPENTIN 100 MG CAP PO PRN (16:23)
[2021-09-11] MEDS: carvediloL 6.25 MG TAB PO SCH (21:00)
[2021-09-11] MEDS: ATORVASTATIN 80 MG TAB PO SCH (21:51)
[2021-09-12 04:12] LABS: Urine Appearance Clear (Clear); Urine Bilirubin Negative (Negative); Urine Blood Negative (Negative); Urine Color Yellow (Yellow); Urine Glucose Negative (Negative); Urine Protein Negative (Negative); Urine Specific Gravity 1.015 (1.005-1.030); Urine Urobilinogen 0.2 mg/dL (0.2-1.0); Urine pH 5.5 (5.0-7.0)
[2021-09-12 04:23] LABS: Urine Microscopic Reflex ORDER UMIC
[2021-09-12 05:07] LABS: Urine Bacteria <20 /HPF (NONE SEEN); Urine RBC <5 /HPF (NONE SEEN); Urine Urothelial Cells <5 /HPF (NONE SEEN)
--- NOTE | 2021-09-12 06:38 | P.PN ---
Date of Service: 09/12/21 Subjective: urinary retention overnight, s/p straight cath x1 feeling discomfort of bladder and tip of penis, briefly felt better last night ROS: 10 point ROS as noted above, otherwise negative Physical exam GEN: Alert, oriented, fatigued appearing HEENT: Normal conjunctiva, sclera anicteric CV: Regular rate and rhythm, 1+ pitting b/l edema in lower extremities Pulm: mild labored respirations on 2L NC, b/l rales ABD: Soft, nontender, nondistended Neuro: Normal speech, normal affect Problem List Acute on chronic diastolic CHF exacerbation hyponatremia secondary to hypervolemia urinary retention Malignant hypertension Chronic COPD Gout Continue IV Lasix, nephrology consulted, may need increase urinary retention, renal/bladder U/S ordered today, will recheck PVR; if recurs, will need leblanc, outpatient f/u with urology Swelling and respirations seem to be improving slowly suspect hyponataremia secondary to hypervolemia Echocardiogram with normal EF, noted some compliance issues. Cardiology consulted. Recommended changing Norvasc to Coreg, consider spironolactone or increasing Lasix if blood pressure can tolerate Continue bronchodilators for COPD Dr. Bland consulted, patient sees as outpatient he may be having a mild component of COPD exacerbation VTE: lovenox Code: full Dispo: agreeable to SNF Time Spent Managing Pts Care (In Minutes): 35
--- NOTE | 2021-09-12 07:22 | RAD REPORT ---
EXAM DESCRIPTION: US - Renal Ultrasound-Complete - 09/12/2021 12:49 am CLINICAL HISTORY: decreased urine output COMPARISON: CTSTONE PROTOCOL dated 03/31/2015 FINDINGS: Both kidneys are normal in size, shape and echotexture. The right kidney measures 11.9 cm. No hydronephrosis, focal mass or perinephric fluid. The left kidney measures 11.8 cm. No hydronephrosis, focal mass or perinephric fluid. IMPRESSION: Unremarkable renal sonogram. No hydronephrosis.
--- NOTE | 2021-09-12 07:24 | RAD REPORT ---
EXAM DESCRIPTION: US - Urinary Bladder - 09/12/2021 12:49 am CLINICAL HISTORY: decreased urine output COMPARISON: No comparisons FINDINGS: No gross abnormalities of the bladder identified. Pre-void bladder volume: 309 mL Post-void residual volume: minimal IMPRESSION: No urinary retention identified.
[2021-09-12 08:29] LABS: Hematocrit 34.6 % (39.6-49.0); MPV 8.6 fL (7.6-11.3); RBC Red Blood Cell Count 3.62 M/uL (4.33-5.43)
[2021-09-12] MEDS: FUROSEMIDE 40 MG/4 ML VIAL IV SCH ×3 (08:34→18:00)
[2021-09-12] MEDS: carvediloL 6.25 MG TAB PO SCH ×2 (08:35→21:48)
[2021-09-12] MEDS: TAMSULOSIN 0.4 MG SR CAP PO SCH (08:35)
[2021-09-12] MEDS: allopurinoL 300 MG TAB PO SCH (08:35)
[2021-09-12] MEDS: LOSARTAN POTASSIUM 50 MG TABLET PO SCH (08:35)
[2021-09-12] MEDS: CLOPIDOGREL 75 MG TABLET PO SCH (08:35)
[2021-09-12] MEDS: ENOXAPARIN 40 MG/0.4 ML SQ SCH (08:36)
[2021-09-12 08:39] LABS: ALT/SGPT 44 U/L (12-78); AST/SGOT 54 U/L (15-37); Albumin 2.9 g/dL (3.4-5.0); BUN Blood Urea Nitrogen 36 mg/dL (7-18); Bicarbonate 30 mmol/L (21-32); Bilirubin Total 0.8 mg/dL (0.2-1.0); Glucose Level 88 mg/dL (74-106); Magnesium 2.1 mg/dL (1.8-2.4); Potassium 3.6 mmol/L (3.5-5.1); Protein, Total 6.3 g/dL (6.4-8.2); Sodium Level 121 mmol/L (136-145)
[2021-09-12] MEDS: HOME MED 1 EA UNK (Fluticasone/Umeclidin/Vilanter [Trelegy Ellipta 200-62.5-25] Blst.W.Dev IH SCH (09:00)
[2021-09-12 09:16] LABS: Alkaline Phosphatase 109 U/L (45-117)
--- NOTE | 2021-09-12 11:00 | P.CNS ---
Primary Care Provider: Amaury Chief Complaint: Anasarca, Hyponatremia History of Present Illness: 76-year-old male patient admitted for mental status evaluation. He has a history of diabetes, pretension, suggestive of failure not, to volume overload. He was noted to have hyponatremia to sodium of 120 and was started on IV diuretic. Sodium has consistently stayed in the low 120s prompting nephrology consultation. Allergies No Known Drug Allergies Allergy (Verified 06/15/18 04:03) Unknown Home Medications: Atorvastatin Calcium [Lipitor] 80 mg PO BEDTIME 06/15/18 allopurinoL [Zyloprim*] 300 mg PO DAILY 06/15/18 Albuterol Sulfate [Albuterol Sulfate Hfa] 2 puff IH QIDP PRN 09/08/21 Clopidogrel Bisulfate [Plavix] 75 mg PO DAILY 09/08/21 Fluticasone/Umeclidin/Vilanter [Trelegy Ellipta 200-62.5-25] 1 puff IH DAILY 09/08/21 Furosemide [Lasix] 20 mg PO DAILY 09/08/21 Losartan Potassium 25 mg PO DAILY 09/08/21 Spironolactone [Aldactone] 25 mg PO BID 09/08/21 - Past Medical/Surgical History Diabetic: No -: dyslipidemia -: chf -: CA -: COPD -: gout -: hypertension -: metabolic syndrome -: left knee sx- tkr -: heart stent x 4 Psychosocial/ Personal History: Patient lives at home with his son. - Family History Mother Medical History: Diabetes - Social History Smoking Status: Current every day smoker Alcohol use: No CD- Drugs: No Caffeine use: No Place of Residence: Home Review of Systems General: Unremarkable Eyes: Unremarkable ENT: Unremarkable Respiratory: Shortness of Breath Cardiovascular: Orthopnea, Paroxysmal Noc. Dyspnea Gastrointestinal: Unremarkable Genitourinary: Unremarkable Musculoskeletal: Pedal edema Integumentary: Unremarkable Neurological: Unremarkable Physical Examination Temp Pulse Resp BP Pulse Ox 97.9 F 70 16 133/59 L 95 09/12/21 08:00 09/12/21 08:35 09/12/21 08:00 09/12/21 08:35 09/12/21 08:00 General: Alert, Oriented x3 HEENT: Atraumatic, Normocephalic Neck: Supple Respiratory: Normal air movement Cardiovascular: Regular rate/rhythm, Normal S1 S2 Gastrointestinal: Soft and benign Musculoskeletal: Swelling Neurological: Normal speech, Normal strength at 5/5 x4 extr Conclusions/Impression: Congestive heart failure Anasarca Hyponatremia Hypertension Diabetes type 2 Plan: Persistent hyponatremia is probably secondary to issues with hypervolemic hyponatremia secondary to excess water than sodium causing dilutional hyponatremia. We have started Lasix therapy. I will escalate therapy to 40 mg every 8 and monitor. He does not seem to have significant urine output. Will added metolazone dose for augmentation of diuresis if needed in a.m. Will monitor input and output closely for aggressive diuresis with aim to have a net negative of 2 to 2.5 L in 24hrs.
--- NOTE | 2021-09-12 12:42 | P.CNS ---
Date of Consult: 09/12/21 Reason for Consult: Respiratory distress Primary Care Provider: Amaury Chief Complaint: Anasarca, Hyponatremia History of Present Illness: Patient is 76 years of age past medical history of coronary artery disease metabolic syndrome presented to the emergency room increasing lower extremity edema and shortness of breath he does have a history of asthma have not seen him for a long time still has lower extremity edema Allergies No Known Drug Allergies Allergy (Verified 06/15/18 04:03) Unknown Home Medications: Atorvastatin Calcium [Lipitor] 80 mg PO BEDTIME 06/15/18 allopurinoL [Zyloprim*] 300 mg PO DAILY 06/15/18 Albuterol Sulfate [Albuterol Sulfate Hfa] 2 puff IH QIDP PRN 09/08/21 Clopidogrel Bisulfate [Plavix] 75 mg PO DAILY 09/08/21 Fluticasone/Umeclidin/Vilanter [Trelegy Ellipta 200-62.5-25] 1 puff IH DAILY 09/08/21 Furosemide [Lasix] 20 mg PO DAILY 09/08/21 Losartan Potassium 25 mg PO DAILY 09/08/21 Spironolactone [Aldactone] 25 mg PO BID 09/08/21 - Past Medical/Surgical History Diabetic: No -: dyslipidemia -: chf -: [place] -: COPD -: gout -: hypertension -: metabolic syndrome -: left knee sx- tkr -: heart stent x 4 Psychosocial/ Personal History: Patient lives at home with his son. - Family History Mother Medical History: Diabetes - Social History Smoking Status: Current every day smoker Alcohol use: No CD- Drugs: No Caffeine use: No Place of Residence: Home Review of Systems General: Weakness Respiratory: Shortness of Breath Cardiovascular: Edema Physical Examination Temp Pulse Resp BP Pulse Ox 97.9 F 70 16 133/59 L 95 09/12/21 08:00 09/12/21 08:35 09/12/21 08:00 09/12/21 08:35 09/12/21 08:00 General: Alert, Mild distress Respiratory: Expiratory wheezes Cardiovascular: Regular rate/rhythm, Edema (3+ edema) Gastrointestinal: Normal bowel sounds, Soft and benign - Problems (1) Acute on chronic diastolic heart failure Current Visit: Yes Status: Acute Plan: Patient is 76 years of age metabolic syndrome I suspect he has acute on chronic diastolic heart failure continue Lasix add spironolactone history of obstructive airways disease add scheduled bronchodilators labs reviewed continue with aggre ssive diuresis vital signs reviewed oxygenation stable valve ordered arterial blood gases very mildly anemic x-rays reviewed normal renal function diminished lung volumes
[2021-09-12] MEDS ORDERED: IPRATROPIUM BROM 0.5MG/2.5ML NEB SCH (13:00)
[2021-09-12] MEDS: ACETAMINOPHEN 500 MG TAB PO PRN ×2 (13:00→21:49)
[2021-09-12] MEDS: SPIRONOLACTONE 25 MG TABLET PO SCH ×2 (13:00→21:48)
[2021-09-12] MEDS: ALBUTEROL 2.5 MG/3 ML NEB SOL NEB SCH ×2 (14:30→19:40)
[2021-09-12 14:58] LABS: Arterial Blood Carboxyhemoglob 1.2 % (0-1.5)
[2021-09-12] MEDS: ATORVASTATIN 80 MG TAB PO SCH (21:49)
[2021-09-12] MEDS: ONDANSETRON 4 MG/2 ML VIAL IV PRN (21:49)
--- NOTE | 2021-09-13 00:15 | PN ---
Date of Progress Note: 09/12/2021 Subjective: Mr. Granados came in with acute on chronic diastolic congestive heart failure. He has a h istory of obesity, CAD, hypertension, dyslipidemia, and COPD. His ejection fraction was normal with decreased left ventricular compliance consistent with diastolic dysfunction. I recommended to contin ue his inhalers Lasix, Lovenox, and Plavix. I think Norvasc should be changed to carvedilol. Increa se IV Lasix. Continue hydralazine and losartan. Consider low-dose Aldactone. Consider Pulmonary co nsultation. The patient has improved overnight. Objective: Today, his blood pressure is 140/50. He is in sinus rhythm at 62, afebrile, respiratory rate is 18, O2 saturation 99% on nasal cannula. Laboratory Data: His creatinine is 0.80. The patient's sodium is low at 121. Assessment/plan: Again, I think Aldactone is a good choice to improve that. Nephrology may help as far as his electrolyte imbalance is due. We will continue to follow him as needed. He will need an outpatient Lexiscan and a carotid Doppler down the road. NB/MODL Voice ID: [id number] Report ID: [id number]
[2021-09-13] MEDS: ALBUTEROL 2.5 MG/3 ML NEB SOL NEB SCH ×4 (01:35→20:40)
[2021-09-13] MEDS: FUROSEMIDE 40 MG/4 ML VIAL IV SCH ×3 (03:22→18:29)
[2021-09-13 05:56] LABS: Albumin 2.8 g/dL (3.4-5.0); BUN Blood Urea Nitrogen 38 mg/dL (7-18); Bicarbonate 33 mmol/L (21-32); Glucose Level 90 mg/dL (74-106); Phosphorus 3.5 mg/dL (2.5-4.9); Sodium Level 126 mmol/L (136-145)
--- NOTE | 2021-09-13 06:36 | P.PN ---
Date of Service: 09/13/21 Subjective: improving, less dyspneic, less swelling leblanc placed yesterday due to retention. patient feels better ROS: 10 point ROS as noted above, otherwise negative Physical exam GEN: Alert, oriented, NAD HEENT: Normal conjunctiva, sclera anicteric CV: Regular rate and rhythm, 1+ pitting b/l edema in lower extremities, R slightly greater than left Pulm: mild labored respirations on 2L NC, diminished bilaterally at bases ABD: Soft, nontender, nondistended Neuro: Normal speech, normal affect Problem List Acute on chronic diastolic CHF exacerbation hyponatremia secondary to hypervolemia urinary retention Malignant hypertension Chronic COPD Gout Continue IV Lasix, nephrology consulted spironolactone added yesterday leblanc placed yesterday, f/u outpatient Urology - discussed with Dr. Hoang who will inform office staff to get him in sooner diuresing well Swelling and respirations seem to be improving slowly suspect hyponataremia secondary to hypervolemia, improving with diuresis Echocardiogram with normal EF, noted some compliance issues. Cardiology consulted. Recommended changing Norvasc to Coreg, adding spironolactone Continue bronchodilators for COPD Dr. Bland consulted VTE: lovenox Code: full Dispo: agreeable to SNF, dc 1-2 days Time Spent Managing Pts Care (In Minutes): 35
--- NOTE | 2021-09-13 08:12 | P.PN ---
Subjective Date of Service: 09/13/21 Primary Care Provider: Amaury Chief Complaint: Congestive heart failure Subjective: Improving (Patient is improving doing better edema has decreased complains of shortness of breath and weakness) Review of Systems General: Weakness Respiratory: Shortness of Breath Physical Examination - Vital Signs Temperature: 96.9 F Blood Pressure: 118/56 Pulse: 68 Respirations: 19 Pulse Ox (%): 100 - Physical Exam General: Alert, In no apparent distress, Oriented x3 Respiratory: Clear to auscultation bilaterally, Diminished Cardiovascular: Regular rate/rhythm, Edema Assessment And Plan - Current Problems (Diagnosis) (1) Acute on chronic diastolic heart failure Current Visit: Yes Status: Acute Plan: Patient has improved edema decline chemistries have also improved continue with a combination of Lasix and spironolactone discharge planning labs vital signs all reviewed Discharge Plan: Home Plan to discharge in: 24 Hours
[2021-09-13] MEDS: carvediloL 6.25 MG TAB PO SCH ×3 (09:00→20:29)
[2021-09-13] MEDS: LOSARTAN POTASSIUM 50 MG TABLET PO SCH (09:00)
[2021-09-13] MEDS: HOME MED 1 EA UNK (Fluticasone/Umeclidin/Vilanter [Trelegy Ellipta 200-62.5-25] Blst.W.Dev IH SCH (09:00)
[2021-09-13] MEDS: TAMSULOSIN 0.4 MG SR CAP PO SCH (09:09)
[2021-09-13] MEDS: SPIRONOLACTONE 25 MG TABLET PO SCH ×2 (09:10→20:29)
[2021-09-13] MEDS: allopurinoL 300 MG TAB PO SCH (09:15)
[2021-09-13] MEDS: CLOPIDOGREL 75 MG TABLET PO SCH (09:16)
[2021-09-13] MEDS: ENOXAPARIN 40 MG/0.4 ML SQ SCH (09:16)
[2021-09-13] MEDS: OXYBUTYNIN CHLORIDE 5 MG TAB PO SCH ×2 (12:39→20:29)
--- NOTE | 2021-09-13 16:32 | P.PN ---
Subjective Date of Service: 09/13/21 Primary Care Provider: Amaury Chief Complaint: Congestive heart failure Subjective: No new changes, Improving Physical Examination - Vital Signs Temperature: 96.9 F Blood Pressure: 123/56 Pulse: 69 Respirations: 19 Pulse Ox (%): 100 - Physical Exam General: Alert, Oriented x3 HEENT: Atraumatic, Normocephalic Neck: Supple Respiratory: Normal air movement Cardiovascular: Regular rate/rhythm, Normal S1 S2 Gastrointestinal: Soft and benign Neurological: Normal speech Assessment And Plan - Plan Congestive heart failure Anasarca Hyponatremia-improving. Hypertension Diabetes type 2 Plan: His urine output is much better today. Volume is 2.16 L. Will continue Lasix at present dose. Sodium is improved from 121 the day day prior to 126 this morning. Will continue Lasix therapy for significant free water excretion via urinary tract. Will monitor sodium level on daily basis. Will monitor input and output closely for aggressive diuresis with aim to have a net negative of 2 to 2.5 L in 24hrs.
[2021-09-13] MEDS: ATORVASTATIN 80 MG TAB PO SCH (20:29)
[2021-09-13] MEDS: GABAPENTIN 100 MG CAP PO PRN (20:30)
[2021-09-13] MEDS: ACETAMINOPHEN 500 MG TAB PO PRN (20:30)
[2021-09-13] MEDS: ONDANSETRON 4 MG/2 ML VIAL IV PRN (20:31)
[2021-09-14] MEDS: ALBUTEROL 2.5 MG/3 ML NEB SOL NEB SCH ×6 (01:50→19:08)
[2021-09-14] MEDS: FUROSEMIDE 40 MG/4 ML VIAL IV SCH ×3 (04:21→18:38)
[2021-09-14 06:17] LABS: Albumin 2.7 g/dL (3.4-5.0); BUN Blood Urea Nitrogen 38 mg/dL (7-18); Bicarbonate 32 mmol/L (21-32); Glucose Level 94 mg/dL (74-106); Phosphorus 2.6 mg/dL (2.5-4.9); Sodium Level 124 mmol/L (136-145)
--- NOTE | 2021-09-14 06:42 | P.PN ---
Date of Service: 09/14/21 Subjective: feels slightly better edema improved breathing about the same large BM today ROS: 10 point ROS as noted above, otherwise negative Physical exam GEN: Alert, oriented, NAD HEENT: Normal conjunctiva, sclera anicteric CV: Regular rate and rhythm, 1+ pitting b/l edema in lower extremities Pulm: mild labored respirations on 2L NC, diminished bilaterally at bases ABD: Soft, nontender, nondistended Neuro: Normal speech, normal affect Problem List Acute on chronic diastolic CHF exacerbation hyponatremia secondary to hypervolemia urinary retention Malignant hypertension Chronic COPD Gout Continue IV Lasix, nephrology consulted spironolactone added 09/12; nephro considering miltonsca leblanc placed 09/12, f/u outpatient Urology - discussed with Dr. Hoang who will inform office staff to get him in sooner diuresing well Swelling and respirations improving suspect hyponataremia secondary to hypervolemia, improving with diuresis Echocardiogram with normal EF, noted some compliance issues. Cardiology consult ed. Recommended changing Norvasc to Coreg, adding spironolactone Continue bronchodilators for COPD Dr. Bland consulted VTE: lovenox Code: full Dispo: agreeable to SNF, dc ~1 days Time Spent Managing Pts Care (In Minutes): 35
[2021-09-14] MEDS ORDERED: IPRATROPIUM BROM 0.5MG/2.5ML NEB PRN (07:09)
--- NOTE | 2021-09-14 07:26 | P.PN ---
Subjective Date of Service: 09/14/21 Primary Care Provider: Amaury Chief Complaint: Congestive heart failure Subjective: No new changes, Improving Physical Examination - Vital Signs Temperature: 97.6 F Blood Pressure: 129/61 Pulse: 63 Respirations: 18 Pulse Ox (%): 93 - Physical Exam General: Alert, Oriented x3 HEENT: Atraumatic, Normocephalic Neck: Supple Respiratory: Normal air movement Cardiovascular: Regular rate/rhythm, Normal S1 S2 Gastrointestinal: Soft and benign Neurological: Normal speech Assessment And Plan - Plan Congestive heart failure Anasarca Hyponatremia-improving. Hypertension Diabetes type 2 Plan: His urine output is much better today. Volume is 2.8 L. Will continue Lasix at present dose. Sodium is still low at 124, we will dose tolvaptan x1 for better free water excretion. Will continue Lasix therapy for significant free water excretion via urinary tract. Will monitor sodium level on daily basis.
[2021-09-14] MEDS ORDERED: TOLVAPTAN 15 MG TABLET PO ONE (08:00)
--- NOTE | 2021-09-14 08:43 | RAD REPORT ---
EXAM DESCRIPTION: RAD - Chest Single View - 09/14/2021 5:35 am CLINICAL HISTORY: f/u pulm edema Chest pain. COMPARISON: Chest Single View dated 09/11/2021; Chest Single View dated 09/08/2021; Chest Single View dated 06/14/2018; Chest Pa And Lat (2 Views) dated 01/21/2018 FINDINGS: Portable technique limits examination quality. Underinflated lungs with mild interstitial prominence, unchanged since 09/11/2021 study. The heart is mildly prominent size. No displaced fractures. IMPRESSION: Stable chest since 09/11/2021.
[2021-09-14] MEDS: HOME MED 1 EA UNK (Fluticasone/Umeclidin/Vilanter [Trelegy Ellipta 200-62.5-25] Blst.W.Dev IH SCH (09:00)
[2021-09-14] MEDS: CLOPIDOGREL 75 MG TABLET PO SCH (09:17)
[2021-09-14] MEDS: TAMSULOSIN 0.4 MG SR CAP PO SCH (09:17)
[2021-09-14] MEDS: carvediloL 6.25 MG TAB PO SCH ×2 (09:18→20:49)
[2021-09-14] MEDS: allopurinoL 300 MG TAB PO SCH (09:18)
[2021-09-14] MEDS: LOSARTAN POTASSIUM 50 MG TABLET PO SCH (09:18)
[2021-09-14] MEDS: OXYBUTYNIN CHLORIDE 5 MG TAB PO SCH ×2 (09:18→20:49)
[2021-09-14] MEDS: SPIRONOLACTONE 25 MG TABLET PO SCH ×2 (09:18→20:50)
[2021-09-14] MEDS: ENOXAPARIN 40 MG/0.4 ML SQ SCH (09:19)
[2021-09-14] MEDS: ONDANSETRON 4 MG/2 ML VIAL IV PRN (12:54)
[2021-09-14] MEDS: ATORVASTATIN 80 MG TAB PO SCH (20:48)
[2021-09-15] MEDS: ALBUTEROL 2.5 MG/3 ML NEB SOL NEB SCH ×5 (00:05→22:10)
[2021-09-15] MEDS: GABAPENTIN 100 MG CAP PO PRN (00:17)
[2021-09-15] MEDS: FUROSEMIDE 40 MG/4 ML VIAL IV SCH ×2 (02:48→12:04)
[2021-09-15 04:27] LABS: Hematocrit 31.4 % (39.6-49.0); MPV 8.2 fL (7.6-11.3); RBC Red Blood Cell Count 3.28 M/uL (4.33-5.43)
[2021-09-15 04:46] LABS: Albumin 2.6 g/dL (3.4-5.0); Phosphorus 3.2 mg/dL (2.5-4.9); Potassium 3.7 mmol/L (3.5-5.1)
[2021-09-15] MEDS: HOME MED 1 EA UNK (Fluticasone/Umeclidin/Vilanter [Trelegy Ellipta 200-62.5-25] Blst.W.Dev IH SCH (09:00)
[2021-09-15] MEDS: CLOPIDOGREL 75 MG TABLET PO SCH (09:56)
[2021-09-15] MEDS: SPIRONOLACTONE 25 MG TABLET PO SCH ×2 (09:56→20:52)
[2021-09-15] MEDS: OXYBUTYNIN CHLORIDE 5 MG TAB PO SCH (09:56)
[2021-09-15] MEDS: ENOXAPARIN 40 MG/0.4 ML SQ SCH (09:56)
[2021-09-15] MEDS: TAMSULOSIN 0.4 MG SR CAP PO SCH (09:56)
[2021-09-15] MEDS: allopurinoL 300 MG TAB PO SCH (09:57)
[2021-09-15] MEDS: carvediloL 6.25 MG TAB PO SCH ×2 (09:57→20:52)
[2021-09-15] MEDS: LOSARTAN POTASSIUM 50 MG TABLET PO SCH (09:57)
--- NOTE | 2021-09-15 10:39 | P.PN ---
Subjective Date of Service: 09/15/21 Primary Care Provider: Amaury Chief Complaint: Congestive heart failure Subjective: Improving (Patient is improving still very anxious) Review of Systems General: Weakness Respiratory: Shortness of Breath Physical Examination - Vital Signs Temperature: 97.1 F Blood Pressure: 115/53 Pulse: 64 Respirations: 20 Pulse Ox (%): 99 - Physical Exam General: Alert, In no apparent distress, Mild distress Respiratory: Clear to auscultation bilaterally, Diminished Cardiovascular: Normal S1 S2, Edema Assessment And Plan - Current Problems (Diagnosis) (1) Acute on chronic diastolic heart failure Current Visit: Yes Status: Acute Plan: Patient is improving anxious oxygen nation is satisfactory with a urinary catheter patient to be discharged home mild chronic hyponatremia labs reviewed vital signs stable evaluate for home oxygen continue with bronchodilators at home spironolactone Lasix
--- NOTE | 2021-09-15 16:51 | P.PN ---
Date of Service: 09/15/21 Subjective: edema and breathing improved patient not getting up much feels bladder discomfort still, was better after leblanc and yesterday ROS: 10 point ROS as noted above, otherwise negative Physical exam GEN: Alert, oriented, NAD HEENT: Normal conjunctiva, sclera anicteric CV: Regular rate and rhythm, trace-1+ b/l edema in lower extremities Pulm: nonlabored respirations on 2L NC, shallow respirations ABD: Soft, nondistended, mild discomfort with palpation of bladder Neuro: Normal speech, normal affect Problem List Acute on chronic diastolic CHF exacerbation hyponatremia secondary to hypervolemia urinary retention bladder spasm Malignant hypertension Chronic COPD Gout diuresing well, decrease lasix q8h -> BID CXR, oxygen saturation, edema all improved spironolactone added 09/12; nephro ordered tolvaptan x1 on 09/14 Na still low, but improved, stable; secondary to hypervolemia suspect bladder discomfort is secondary to bladder spams patient reported bladder pain shortly after receiving lasix, noted to have urinary retention on 2 separate occasions leblanc placed 09/12, f/u outpatient Urology - discussed with Dr. Hoang who will inform office staff to get him in sooner spoke with daughter today, voiced her concerns of urinary retention and discomfort, is not happy with plan to be seen by Urology as outpatient she is requesting inpatient urology evaluation prior to accepting discharge of patient, or would want patient transferred to a different hospital Echo: normal EF, noted some compliance issues. Cardiology consulted. Recommended changing Norvasc to Coreg, adding spironolactone Continue bronchodilators for COPD Dr. Bland consulted VTE: lovenox Code: full Dispo: agreeable to SNF, dc ~1 day Time Spent Managing Pts Care (In Minutes): 35
[2021-09-15] MEDS: ACETAMINOPHEN 500 MG TAB PO PRN (19:09)
[2021-09-15] MEDS: PHENAZOPYRIDINE 100MG TAB PO SCH (20:51)
[2021-09-15] MEDS: ONDANSETRON 4 MG/2 ML VIAL IV PRN (20:51)
[2021-09-15] MEDS: ATORVASTATIN 80 MG TAB PO SCH (20:52)
[2021-09-16] MEDS: ALBUTEROL 2.5 MG/3 ML NEB SOL NEB SCH ×4 (01:55→19:35)
[2021-09-16] MEDS: GABAPENTIN 100 MG CAP PO PRN (05:15)
[2021-09-16] MEDS: ACETAMINOPHEN 500 MG TAB PO PRN ×2 (05:15→23:20)
--- NOTE | 2021-09-16 06:28 | P.PN ---
Date of Service: 09/16/21 Subjective: improving, swelling much improved, breathing more comfortably no urinary / bladder pain yet this morning, had 2 episodes yesterday lasting 2-3 minutes BM yesterday, reports h/o constipation ROS: 10 point ROS as noted above, otherwise negative Physical exam GEN: Alert, oriented, NAD HEENT: Normal conjunctiva, sclera anicteric CV: Regular rate and rhythm, trace b/l edema in lower extremities Pulm: non-labored respirations on 2L NC, shallow respirations ABD: Soft, mild suprapubic tenderness Neuro: Normal speech, normal affect Problem List Acute on chronic diastolic CHF exacerbation hyponatremia secondary to hypervolemia urinary retention, suspect BPH, bladder spasms Malignant hypertension Chronic COPD Gout diuresing well, decrease lasix q8h -> BID on 09/15 CXR, oxygen saturation, edema all improved spironolactone added 09/12; nephro ordered tolvaptan x1 on 09/14 Na improving suspect bladder discomfort is secondary to bladder spasms / catheter / ur retention had few days of "bladder pain" prior to hospitalization, initially improved, then noticed again more painful, states felt it after lasix noted to have urinary retention on 2 separate occasions straight cath x1, then leblanc placed 09/12, started flomax recommended f/u outpatient Urology - discussed with Dr. Hoang who will inform office staff to get him in sooner trial of ditropan with no change, started pyridium 09/15 spoke with daughter 09/15, voiced her concerns of urinary retention and discomfort, is not happy with plan to be seen by Urology as outpatient she is requesting inpatient urology evaluation prior to accepting discharge of patient, or would want patient transferred to a different hospital explained prior CT from many years ago showed mildly enlarged prostate. BPH could be playing a role here patient reported lower abd pains, h/o constipation, but states some vague pains over last 2 days, will check CT Echo: normal EF, noted some compliance issues. Cardiology consulted. Recommended changing Norvasc to Coreg, adding spironolactone Continue bronchodilators for COPD Dr. Bland consulted VTE: lovenox Code: full Dispo: agreeable to SNF, dc ~1 day Time Spent Managing Pts Care (In Minutes): 35
[2021-09-16 07:01] LABS: Hematocrit 30.1 % (39.6-49.0); MPV 8.2 fL (7.6-11.3); RBC Red Blood Cell Count 3.13 M/uL (4.33-5.43)
[2021-09-16 07:13] LABS: Albumin 2.5 g/dL (3.4-5.0); Bilirubin Total 0.5 mg/dL (0.2-1.0); Magnesium 2.3 mg/dL (1.8-2.4); Potassium 3.9 mmol/L (3.5-5.1); Protein, Total 5.9 g/dL (6.4-8.2)
[2021-09-16] MEDS: HOME MED 1 EA UNK (Fluticasone/Umeclidin/Vilanter [Trelegy Ellipta 200-62.5-25] Blst.W.Dev IH SCH (09:00)
[2021-09-16] MEDS: allopurinoL 300 MG TAB PO SCH (09:00)
[2021-09-16] MEDS: SPIRONOLACTONE 25 MG TABLET PO SCH ×2 (09:47→20:52)
[2021-09-16] MEDS: carvediloL 6.25 MG TAB PO SCH ×2 (09:47→20:51)
[2021-09-16] MEDS: TAMSULOSIN 0.4 MG SR CAP PO SCH (09:48)
[2021-09-16] MEDS: LOSARTAN POTASSIUM 50 MG TABLET PO SCH (09:48)
[2021-09-16] MEDS: CLOPIDOGREL 75 MG TABLET PO SCH (09:48)
[2021-09-16] MEDS: ENOXAPARIN 40 MG/0.4 ML SQ SCH (09:49)
[2021-09-16] MEDS: PHENAZOPYRIDINE 100MG TAB PO SCH ×3 (09:49→20:52)
[2021-09-16] MEDS ORDERED: POLYETHYL GLY 3350 17 GM/DOSE PO PRN (10:28)
[2021-09-16] MEDS: FUROSEMIDE 40 MG/4 ML VIAL IV SCH ×2 (12:22→17:06)
[2021-09-16] MEDS ORDERED: LORazepam 2 MG/ML VIAL IV ONE (16:49)
--- NOTE | 2021-09-16 17:51 | RAD REPORT ---
EXAM DESCRIPTION: CTAbdomen Pelvis W Contrast - 09/16/2021 5:40 pm CLINICAL HISTORY: Abdominal pain. eval bladder, prostate, stool burden COMPARISON: No comparisonsNo comparisons TECHNIQUE: Biphasic CT imaging of the abdomen and pelvis was performed with 100 ml non-ionic IV cont rast. All CT scans are performed using dose optimization technique as appropriate and may include automated exposure control or mA/KV adjustment according to patient size. FINDINGS: Mild atelectasis is present in both lung bases. The liver, spleen, pancreas, adrenal glands and kidneys are within normal limits. Cholelithiasis. No bowel obstruction, free air, free fluid or abscess. Gaseous distention of the colon seen. Normal s tool burden. Nonvisualized appendix. No evidence of significant lymphadenopathy. Left hip hardware present. Moderate lumbar degenerative changes. Boss catheter is present in the urinary bladder, limiting assessment. IMPRESSION: Mild atelectasis in both lung bases. Moderate nonspecific gaseous distention of the colon. Stool burden is normal.
[2021-09-16] MEDS ORDERED: ATORVASTATIN 40 MG TAB ONE (20:40)
[2021-09-16] MEDS: ATORVASTATIN 80 MG TAB PO SCH (20:52)
[2021-09-16] MEDS: DOCUSATE NA 100 MG CAP PO SCH ×2 (20:52→21:00)
[2021-09-17] MEDS: ALBUTEROL 2.5 MG/3 ML NEB SOL NEB SCH ×4 (01:55→20:05)
[2021-09-17] MEDS: ACETAMINOPHEN 500 MG TAB PO PRN (05:39)
[2021-09-17 06:00] LABS: Hematocrit 31.7 % (39.6-49.0); MPV 8.1 fL (7.6-11.3); RBC Red Blood Cell Count 3.32 M/uL (4.33-5.43)
--- NOTE | 2021-09-17 06:03 | P.PN ---
Date of Service: 09/17/21 Subjective: diuresing well slight nausea today, 1 episode of suprapubic discomfort patient states he has not been using his trelegy throughout the entire hospital stay, despite being on bedside table, and ordered ROS: 10 point ROS as noted above, otherwise negative Physical exam GEN: Alert, oriented, NAD, repeats questions HEENT: Normal conjunctiva, sclera anicteric CV: Regular rate and rhythm, trace b/l edema in lower extremities Pulm: non-labored respirations on 2L NC, shallow respirations ABD: Soft, mild suprapubic tenderness Neuro: Normal speech, normal affect leblanc in place Problem List Acute on chronic diastolic CHF exacerbation hyponatremia secondary to hypervolemia urinary retention, suspect BPH, bladder spasms Malignant hypertension Chronic COPD Gout diuresing well, decrease lasix q8h -> BID on 09/15, changed to PO on 09/17 spironolactone added 09/12; nephro ordered tolvaptan x1 on 09/14 CXR, oxygen saturation, edema all improved Na improving suspect bladder discomfort is secondary to bladder spasms / catheter / ur retention had few days of "bladder pain" prior to hospitalization, initially improved, then noticed again more painful, states felt it after lasix, pain lasts a few minutes noted to have urinary retention on 2 separate occasions straight cath x1, then leblanc placed 09/12, started flomax; patient denied prostate issues. Prior CT abd/pelvis noted mildly enlarged prostate trial of ditropan with no change so discontinued, started pyridium 09/15; felt improved on 09/16 spoke with daughter 09/15, voiced her concerns of urinary retention and discomfort, is not happy with plan to be seen by Urology as outpatient she is requesting inpatient urology evaluation prior to accepting discharge of patient, or would want patient transferred to a different hospital currently does not want transfer. explained prior CT from many years ago showed mildly enlarged prostate. BPH could be playing a role here patient reported lower abd pains, h/o constipation, but states some vague pains over last [address] obtained 09/16: nonspecific gaseous distention of colon. patient passed lots of gas and had BM overnight; anticholinergic effect from ditropan/pyridium may have played a role Echo: normal EF, noted some compliance issues. Cardiology consulted. Recommended changing Norvasc to Coreg, adding spironolactone Dr. Bland consulted continue bronchodilators for COPD unable to confirm to truly got Trelegy or not, documentation of administration is hit/miss, patient states no, but seems to have some dementia / repeats same questions VTE: lovenox Code: full Dispo: agreeable to SNF, dc ~1 day Time Spent Managing Pts Care (In Minutes): 35
[2021-09-17 06:05] LABS: ALT/SGPT 68 U/L (12-78); AST/SGOT 63 U/L (15-37); Albumin 2.6 g/dL (3.4-5.0); Alkaline Phosphatase 135 U/L (45-117); BUN Blood Urea Nitrogen 49 mg/dL (7-18); Bicarbonate 33 mmol/L (21-32); Bilirubin Total 0.4 mg/dL (0.2-1.0); Glucose Level 127 mg/dL (74-106); Magnesium 2.2 mg/dL (1.8-2.4); Potassium 3.7 mmol/L (3.5-5.1); Protein, Total 6.3 g/dL (6.4-8.2); Sodium Level 131 mmol/L (136-145)
[2021-09-17] MEDS: CLOPIDOGREL 75 MG TABLET PO SCH (08:46)
[2021-09-17] MEDS: LOSARTAN POTASSIUM 50 MG TABLET PO SCH (08:46)
[2021-09-17] MEDS: carvediloL 6.25 MG TAB PO SCH ×2 (08:46→20:55)
[2021-09-17] MEDS: FUROSEMIDE 40 MG/4 ML VIAL IV SCH (08:46)
[2021-09-17] MEDS: ENOXAPARIN 40 MG/0.4 ML SQ SCH (08:46)
[2021-09-17] MEDS: HOME MED 1 EA UNK (Fluticasone/Umeclidin/Vilanter [Trelegy Ellipta 200-62.5-25] Blst.W.Dev IH SCH (08:47)
[2021-09-17] MEDS: SPIRONOLACTONE 25 MG TABLET PO SCH ×2 (08:47→20:56)
[2021-09-17] MEDS: PHENAZOPYRIDINE 100MG TAB PO SCH ×3 (08:47→20:56)
[2021-09-17] MEDS: DOCUSATE NA 100 MG CAP PO SCH ×2 (08:47→20:55)
[2021-09-17] MEDS: allopurinoL 300 MG TAB PO SCH (08:47)
[2021-09-17] MEDS: TAMSULOSIN 0.4 MG SR CAP PO SCH (08:48)
[2021-09-17] MEDS: ONDANSETRON 4 MG/2 ML VIAL IV PRN (10:48)
[2021-09-17] MEDS: FUROSEMIDE 40 MG TABLET PO SCH (16:38)
--- NOTE | 2021-09-17 18:31 | P.PN ---
Subjective Date of Service: 09/17/21 Primary Care Provider: Amaury Chief Complaint: Congestive heart failure Subjective: No new changes, Improving Physical Examination - Vital Signs Temperature: 96.6 F Blood Pressure: 131/53 Pulse: 60 Respirations: 18 Pulse Ox (%): 95 - Physical Exam General: Alert, Oriented x3 HEENT: Atraumatic, Normocephalic Neck: Supple Respiratory: Normal air movement Cardiovascular: Regular rate/rhythm, Normal S1 S2 Gastrointestinal: Soft and benign Neurological: Normal speech, Normal strength at 5/5 x4 extr Assessment And Plan - Plan Congestive heart failure Anasarca-resolved. Hyponatremia-improving. Hypertension Diabetes type 2 Plan: His urine output is stable and improved. Will continue Lasix at present dose. Sodium is better at 131, we will continue lasix dose. Will monitor sodium level on daily basis.
[2021-09-17] MEDS: ATORVASTATIN 80 MG TAB PO SCH (20:54)
--- NOTE | 2021-09-18 00:10 | CON ---
Date of Consultation: 09/17/[address] Kendrick Bauer. Reason For Consultation: Bladder spasms and urinary retention. History Of Present Illness: Mr. Granados is a 76-year-old gentleman who has been admitted due to issue s with CHF exacerbation during which time he has noted increased difficulty with voiding and suprapub ic pressure and discomfort associated with those efforts. He noted these symptoms began about a week prior to his admission to the hospital, but got to the point that they became severe enough to ultim ately require a catheter be placed. Bladder scan postvoid residual assessments were made intermitten tly revealing greater than 400 cc of postvoid residual where his bladder ultrasound obtained at other points saw no significant residual. The patient had a Boss catheter placed and acknowledges today that his suprapubic pressure discomfort had essentially resolved. He also complained of some discomf ort at the tip of the penis, but that also seemed to resolve with the catheterization. CT scan of th e abdomen and pelvis was performed on 09/16/2021 revealing mild atelectasis in both lung bases. Live r, spleen, pancreas, adrenal, and kidneys were within normal limits with the presence of cholelithias is. Boss catheter in place within the urinary bladder. I directly reviewed the images of the CT in detail, and no abnormalities of significance were visible . There were apparent corporal body calcifications noted within the phallus of uncertain significanc e. Physical Examination: General: The patient was reasonably well appearing and in no acute distress. He was alert, awake, a nd oriented x3. He had no dyspnea or signs of respiratory distress. He was seated upright in a frank r at the time of this evaluation. Musculoskeletal: Severe musculoskeletal limitation was present, requiring assistance to stand and us e of a walker. I assisted the patient to stand and then to sit again with use of a walker. Genitourinary: Urethral Boss catheter was in place with orange urine from Pyridium use. Genitalia uncircumcised with significant edema of the foreskin, which was essentially non retractable at this t rosendo. The catheter in place within the urethra and draining appropriately. Laboratory Data: His white blood count since admission was between 8.1 and 9.9 and has never been el evated. His creatinine has been normal at 0.73. 09/12/2021: Urinalysis with microscopic assessment was also negative with no red blood cells seen. Assessment And Recommendations: This is a 76-year-old gentleman with history of myocardial infarctio n with 4 stents, congestive heart failure, hypertension, hyperlipidemia, and chronic obstructive pulm onary disease admitted with dyspnea and anasarca associated with systolic heart failure. Since his a dmission, he manifested a significant degree of incomplete emptying/urinary retention associated with bladder spasm related pain and has been started on Flomax and has a urethral Boss catheter in place . Given the genital edema noted at this time, which will likely resolve associated with his heart failu re, recommend elevating the scrotum and phallus by placing rolled towels beneath the scrotum to decre ase the edema of the foreskin. Continue tamsulosin/Flomax and to discharge. Recommend followup for cystoscopy and digital rectal exam in 10-14 days. I discussed with the patient in detail the options for management of the catheter since he has alread y had it for a few days, and he agreed that he would be more comfortable going home or being discharg ed with a catheter and having a followup to determine its continued need with me in the office. TOMMY/KYLIE Voice ID: [id number] Report ID: [id number]
[2021-09-18] MEDS: ALBUTEROL 2.5 MG/3 ML NEB SOL NEB SCH ×3 (01:48→14:34)
[2021-09-18] MEDS: ACETAMINOPHEN 500 MG TAB PO PRN (03:37)
[2021-09-18 05:50] LABS: ALT/SGPT 65 U/L (12-78); AST/SGOT 55 U/L (15-37); Albumin 2.5 g/dL (3.4-5.0); Alkaline Phosphatase 131 U/L (45-117); BUN Blood Urea Nitrogen 50 mg/dL (7-18); Bicarbonate 31 mmol/L (21-32); Bilirubin Total 0.6 mg/dL (0.2-1.0); Glucose Level 101 mg/dL (74-106); Magnesium 2.1 mg/dL (1.8-2.4); Potassium 3.4 mmol/L (3.5-5.1); Protein, Total 6.2 g/dL (6.4-8.2); Sodium Level 129 mmol/L (136-145)
[2021-09-18] MEDS: HOME MED 1 EA UNK (Fluticasone/Umeclidin/Vilanter [Trelegy Ellipta 200-62.5-25] Blst.W.Dev IH SCH (09:00)
[2021-09-18] MEDS: ENOXAPARIN 40 MG/0.4 ML SQ SCH (09:24)
[2021-09-18] MEDS: DOCUSATE NA 100 MG CAP PO SCH (09:25)
[2021-09-18] MEDS: SPIRONOLACTONE 25 MG TABLET PO SCH (09:25)
[2021-09-18] MEDS: allopurinoL 300 MG TAB PO SCH (09:26)
[2021-09-18] MEDS: LOSARTAN POTASSIUM 50 MG TABLET PO SCH (09:26)
[2021-09-18] MEDS: CLOPIDOGREL 75 MG TABLET PO SCH (09:26)
[2021-09-18] MEDS: TAMSULOSIN 0.4 MG SR CAP PO SCH (09:27)
[2021-09-18] MEDS: FUROSEMIDE 40 MG TABLET PO SCH (09:27)
[2021-09-18] MEDS: carvediloL 6.25 MG TAB PO SCH (09:27)
[2021-09-18 09:50] VITALS: O2SAT 94
[2021-09-18 13:44] VITALS: BP 141/58; TEMP 97.3
--- NOTE | 2021-09-18 15:59 | P.DS ---
Admission Date: 09/08/21 Discharge Date: 09/18/21 Primary Care Provider: Amaury Reason for Admission: Congestive heart failure - Problems (1) Acute on chronic diastolic heart failure Current Visit: Yes Status: Acute (2) Malignant hypertension Current Visit: Yes Status: Acute (3) COPD (chronic obstructive pulmonary disease) Current Visit: No Status: Chronic Qualifiers: COPD type: unspecified COPD Qualified Code(s): J44.9 - Chronic obstructive pulmonary disease, unspecified (4) Gout Current Visit: No Status: Chronic Brief History of Present Illness: Patient is a 76-year-old male with past medical history of MD (s/p 4 stents), CHF, hypertension, hyperlipidemia, COPD who presented to the ED with complaints of shortness of breath for the past few weeks and increasing pain in his legs. He was noted to have 3+ pitting edema in his lower extremities bilaterally, BNP elevated at 1100, and CXR showed mild CHF. Other labs significant for sodium of 120. 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 Patient admitted for further management of CHF exacerbation. Hospital Course: Discharge diagnosis Acute on chronic diastolic CHF exacerbation hyponatremia secondary to hypervolemia urinary retention, suspect BPH, bladder spasms Malignant hypertension Chronic COPD Gout Patient admitted to medical floor and started on Lasix therapy He diuresed well with aggressive IV Lasix. lasix was subsequently scaled down to oral Lasix twice daily. spironolactone added 09/12; nephro ordered tolvaptan x1 on 09/14 CXR, oxygen saturation, edema all improved Hyponatremia improved. suspect bladder discomfort is secondary to bladder spasms / catheter / ur retention Noted to have urinary retention on 2 separate occasions straight cath x1, then leblanc placed 09/12, started flomax; patient denied pro state issues. Prior CT abd/pelvis noted mildly enlarged prostate Daughter voiced her concerns of urinary retention and discomfort. Patient seen by urology-Dr. Hoang who recommended to continue Leblanc catheter and tamsulosin, and follow-up with him in the office. CT obtained 09/16: nonspecific gaseous distention of colon. patient passed lots of gas and had BM overnight. Echo: normal EF. Cardiology consulted. Recommended changing Norvasc to Coreg, adding spironolactone Dr. Bland consulted who recommended to continue bronchodilators for COPD Overall patient has clinically improved, edema significantly improved, Leblanc catheter is in for urinary retention. He has been accepted to skilled rehab. Patient is deemed stable for discharge. Vital Signs/Physical Exam: Temp Pulse Resp BP Pulse Ox 97.3 F 67 16 141/58 H 94 09/18/21 12:00 09/18/21 12:00 09/18/21 12:00 09/18/21 12:00 09/18/21 12:00 General: Alert, In no apparent distress, Obese Neck: JVD not distended Respiratory: Clear to auscultation bilaterally, Normal air movement Cardiovascular: Regular rate/rhythm, Normal S1 S2, Edema (Bilateral lower extremities) Gastrointestinal: Soft and benign, Non-distended Musculoskeletal: No swelling Integumentary: Other (Bilateral venous stasis dermatitis) Neurological: Normal strength at 5/5 x4 extr, Cranial nerves 3-12 intact Laboratory Data at Discharge: WBC 9.9 K/uL (4.3-10.9) 09/17/21 05:28 Hgb 10.9 g/dL (13.6-17.9) L 09/17/21 05:28 Hct 31.7 % (39.6-49.0) L 09/17/21 05:28 Plt Count 221 K/uL (152-406) 09/17/21 05:28 PT 12.1 SECONDS (9.5-12.5) 09/08/21 16:10 INR 1.10 09/08/21 16:10 Sodium 129 mmol/L (136-145) L 09/18/21 05:02 Potassium 3.4 mmol/L (3.5-5.1) L 09/18/21 05:02 BUN 50 mg/dL (7-18) H 09/18/21 05:02 Creatinine 0.81 mg/dL (0.55-1.3) 09/18/21 05:02 Glucose 101 mg/dL (74-106) 09/18/21 05:02 Phosphorus 3.2 mg/dL (2.5-4.9) 09/15/21 03:28 Magnesium 2.1 mg/dL (1.8-2.4) 09/18/21 05:02 Total Bilirubin 0.6 mg/dL (0.2-1.0) 09/18/21 05:02 AST 55 U/L (15-37) H 09/18/21 05:02 ALT 65 U/L (12-78) 09/18/21 05:02 Alkaline Phosphatase 131 U/L (45-117) H 09/18/21 05:02 Triglycerides 52 mg/dL (<150) 09/09/21 05:52 Cholesterol 113 mg/dL (<200) 09/09/21 05:52 HDL Cholesterol 77 mg/dL (40-60) H 09/09/21 05:52 Cholesterol/HDL Ratio 1.47 09/09/21 05:52 Home Medications: Atorvastatin Calcium [Lipitor] 80 mg PO BEDTIME 06/15/18 allopurinoL [Zyloprim*] 300 mg PO DAILY 06/15/18 Albuterol Sulfate [Albuterol Sulfate Hfa] 2 puff IH QIDP PRN 09/08/21 Clopidogrel Bisulfate [Plavix*] 75 mg PO DAILY 09/08/21 Fluticasone/Umeclidin/Vilanter [Trelegy Ellipta 200-62.5-25] 1 puff IH DAILY 09/08/21 Losartan Potassium 25 mg PO DAILY 09/08/21 Docusate [Colace Cap*] 100 mg PO BID #60 cap 09/18/21 Gabapentin [Neurontin*] 200 mg PO BID PRN #0 cap 09/18/21 Polyethyl Gly 3350 [Glycolax*] 17 gm PO DAILY PRN #30 udbot 09/18/21 Spironolactone [Aldactone*] 25 mg PO BID #60 tab 09/18/21 Tamsulosin [Flomax*] 0.4 mg PO DAILY #30 cap 09/18/21 carvediloL [Coreg*] 6.25 mg PO BID tab 09/18/21 New Medications: Spironolactone [Aldactone*] 25 mg PO BID #60 tab Docusate [Colace Cap*] 100 mg PO BID #60 cap Tamsulosin [Flomax*] 0.4 mg PO DAILY #30 cap Polyethyl Gly 3350 [Glycolax*] 17 gm PO DAILY PRN #30 udbot PRN Reason: Constipation Followup: Luis Bland MD [ACTIVE - CAN ADMIT] - 1-2 Weeks (call for an apointment) Pablo Duncan MD [ACTIVE - CAN ADMIT] - 1 Week (call for an apointment to have a Lexiscan and carotid doppler done in one week.) Lawrence Rebolledo MD [ACTIVE - CAN ADMIT] - 1-2 Weeks (call for an apoointment) Jaswant Hoang [ACTIVE - CAN ADMIT] - 1 Week (Urologist- call for an apointment. If problems with urinary catheter notify ) Time spent managing pt's care (in minutes): 42
== END 2021-09-18 16:43 | DRG 291 ==
LOC: ER 15:30 → ERHOLD 19:39 → 2ND 20:53
PROVIDERS: ADMIT Internal Medicine; ATTEND Internal Medicine
DX: I11.0 Hypertensive heart disease with heart failure (principal); I50.33 Acute on chronic diastolic (congestive) heart failure; E87.1 Hypo-osmolality and hyponatremia; J44.9 Chronic obstructive pulmonary disease, unspecified; M1A.9XX0 Chronic gout, unspecified, without tophus (tophi); N40.1 Benign prostatic hyperplasia with lower urinary tract symptoms; R33.8 Other retention of urine; N32.89 Other specified disorders of bladder; E78.5 Hyperlipidemia, unspecified; I87.2 Venous insufficiency (chronic) (peripheral); E66.9 Obesity, unspecified; Z68.36 Body mass index [BMI] 36.0-36.9, adult; I25.10 Atherosclerotic heart disease of native coronary artery without angina pectoris; Z95.5 Presence of coronary angioplasty implant and graft; I25.2 Old myocardial infarction; Z79.82 Long term (current) use of aspirin; Z20.822 Contact with and (suspected) exposure to COVID-19
CPT/HCPCS: 36415; 71045; 74177; 76770; 76857; 80048; 80053; 80061; 80069; 80076; 81003; 81015; 82805; 82947; 83735; 83880; 84100; 84439; 84443; 84484; 85025; 85027; 85610; 87070; 87205; 93005; 93306; 94640; 96374; 97110; 97116; 97161; 97530; 99285; J0360; J1650; J1940; J2405; J7030; J7050; J8499; Q9967; U0003